=== PATIENT | female | born 1945 | race Caucasian/White ===

== ENCOUNTER 2021-01-21 09:35 | Outpatient (CLI) | payer MEDICARE, SELFPAY ==
--- NOTE | 2021-01-21 09:43 | MM_ITS ---
WS: [id number] BILATERAL SCREENING DIGITAL MAMMOGRAM WITH CAD HISTORY: SCREENING COMPARISON: None available. Bilateral CC and MLO views submitted. Computer aided detection analyzed. Breast composition: There are scattered areas of fibroglandular density. No suspicious masses, microc alcifications or architectural distortion. There are scattered bilateral round punctate calcification s which are benign. There are additional bilateral breast arterial calcifications. MM/[place] [id number] IMPRESSION: BI-RADS: 2-Benign FOLLOW UP: 1 Year Follow-up
== END 2021-01-21 09:36 | disposition home or self-care (01) ==
LOC: RADSHAW 09:42
PROVIDERS: Family Provider Family Medicine; PCP Family Medicine; Visit Provider Family Medicine
DX: Z12.31 Encounter for screening mammogram for malignant neoplasm of breast (principal)
CPT/HCPCS: 77067

== ENCOUNTER → 2021-12-27 07:29 | Outpatient (BNVA) | payer MEDICARE, SELFPAY | PROVIDERS: Family Provider Family Medicine; PCP Family Medicine; Visit Provider Family Medicine | DX: E11.9 Type 2 diabetes mellitus without complications (principal) | CPT/HCPCS: 80053 ==

== ENCOUNTER → 2022-06-30 08:08 | Outpatient (BNVA) | payer MEDICARE, SELFPAY | PROVIDERS: Family Provider Family Medicine; PCP Family Medicine; Visit Provider Family Medicine | DX: E11.9 Type 2 diabetes mellitus without complications (principal); Z00.00 Encounter for general adult medical examination without abnormal findings | CPT/HCPCS: 80053; 80061; 84443 ==

== ENCOUNTER → 2022-07-05 14:36 | Outpatient (BNVA) | payer MEDICARE, SELFPAY | PROVIDERS: Family Provider Family Medicine; PCP Family Medicine; Visit Provider Family Medicine | DX: I10 Essential (primary) hypertension (principal); N39.0 Urinary tract infection, site not specified; R30.0 Dysuria; E78.5 Hyperlipidemia, unspecified; E03.9 Hypothyroidism, unspecified; E11.9 Type 2 diabetes mellitus without complications; N28.9 Disorder of kidney and ureter, unspecified | CPT/HCPCS: 81000; 87077; 87086; 87184 ==

== ENCOUNTER → 2022-09-26 08:01 | Outpatient (BNVA) | payer MEDICARE, SELFPAY | PROVIDERS: Family Provider Family Medicine; PCP Family Medicine; Visit Provider Family Medicine | DX: E11.9 Type 2 diabetes mellitus without complications (principal); I10 Essential (primary) hypertension; E78.5 Hyperlipidemia, unspecified | CPT/HCPCS: 80048; 85025 ==

== ENCOUNTER → 2022-12-28 08:14 | Outpatient (BNVA) | payer MEDICARE, SELFPAY | PROVIDERS: Family Provider Family Medicine; PCP Family Medicine; Visit Provider Family Medicine | DX: E11.9 Type 2 diabetes mellitus without complications (principal); E03.9 Hypothyroidism, unspecified; I10 Essential (primary) hypertension; E78.5 Hyperlipidemia, unspecified | CPT/HCPCS: 80053; 80061; 83036; 84443 ==

== ENCOUNTER → 2023-01-03 09:10 | Outpatient (BNVA) | payer MEDICARE, SELFPAY | PROVIDERS: Family Provider Family Medicine; PCP Family Medicine; Visit Provider Family Medicine | DX: R30.0 Dysuria (principal); R53.1 Weakness; I95.9 Hypotension, unspecified; E11.9 Type 2 diabetes mellitus without complications | CPT/HCPCS: 81000; 85025; 87086 ==

== ENCOUNTER 2023-01-05 12:33 | Inpatient (IN) | payer MEDICARE, SELFPAY ==
[2023-01-05] VITALS (38 sets, daily range): BP systolic 77–116; BP diastolic 46–67; PULSE 72–157; RESP 15–26; TEMP 36.8; O2SAT 70–100; BMI 21.7
--- NOTE | 2023-01-05 12:52 | XR_ITS ---
WS: [id number] Portable AP upright chest, 01/05/2023 Clinical Data: dyspnea/cough Comparison: Portable chest, 02/01/2019 Findings: No nodules, masses or effusions are seen. The heart is normal. The pulmonary vascularity is not increased. No pneumonia or pneumothorax is seen. The aortic arch and descending thoracic aorta s how mild tortuosity. 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 XR/XR chest 1V portable [id number] Impression: Atherosclerosis.
--- NOTE | 2023-01-05 12:59 | W.ED.RECABL ---
HPI - Recheck/Abnormal Lab/Rx General: Chief Complaint: Recheck/Abnormal Lab/Rx Stated Complaint: wbc high sent from dr Time Seen by Provider: 01/05/23 12:49 Source: patient Mode of arrival: ambulatory History of Present Illness: 78-year-old female presents emergency room from her doctor's office. She was seen by Dr. Xiong 2 days ago in the office showed a white count of 48,000 at that time but otherwise generally seemed well other lab work was done and the patient was started on Bactrim due to a urinalysis that showed 3+ blood and 3+ leukocyte esterase. Preliminary culture shows less than 5000 colony-forming units of a mixed aura likely contaminant. She returns today for recheck her white count had improved but her renal function had significantly worsened. She denies any discomfort other than generally not feeling well. Reviewed Dr. Reagan's notes she given essentially the same history to him. She has no known history of any cancers she has no known history of any coronary artery disease. MD complaint: abnormal lab Initial visit (ago): day(s) (2) Review of Systems Const: Denies: fever(s), chills, body aches, change in appetite, fatigue or malaise ENMT: Denies: throat pain, ear or mastoid pain, nasal discharge or nasal congestion Card: Denies: chest pain, edema, dyspnea on exertion or orthopnea Resp: Denies: dyspnea, productive cough or non-productive cough GI: Denies: abdominal pain, nausea, vomiting, hematemesis, coffee ground emesis, diarrhea, constipation, bloating, hematochezia or melena : Denies: flank pain, difficulty voiding, dysuria, urinary frequency or urinary urgency Skin/Breast: Denies: rash or pruritus PFSH ED PFSH: Medical History Diabetes mellitus type 2, controlled Hyperlipidemia Hypertension Hypothyroid Family History (Updated 01/05/23 @ 16:21 by Po Mansfield MD) Other CAD (coronary artery disease) Denies family history of Cancer Social History (Updated 01/05/23 @ 16:22 by Po Mansfield MD) Smoking and tobacco status: former smoker Alcohol intake: never Substance/Drug Use: never Caregiver/support person: Yes Lives independently: Yes Household members: family Housing: House Physical Exam Const: GENERAL APPEARANCE: cooperative and comfortable ORIENTATION/CONSCIOUSNESS: Yes awake, Yes oriented to person, Yes oriented to place and Yes oriented to time HENMT: COMMON NORMALS: normocephalic, atraumatic and hearing grossly normal bilaterally HEAD & SCALP: normocephalic and atraumatic Resp: COMMON NORMALS: normal respiratory effort, No retractions, No use of accessory muscles and clear to auscultation bilaterally AUSCULTATION: clear to auscultation bilaterally Cardio: COMMON NORMALS: regular rate, regular rhythm and No murmurs present (Cardio) RATE: regular rate RHYTHM: regular rhythm GI: COMMON NORMALS: Soft to palpation and No hepatosplenomegaly present AUSCULTATION: Yes normoactive bowel sounds PALPATION: Yes Soft to palpation, No Tenderness to palpation present (GI), No Guarding due to palpation present (GI) and Yes No hepatosplenomegaly present Extremity: COMMON NORMALS: normal to inspection, capillary refill normal, no clubbing, cyanosis or edema, no calf tenderness and no pedal edema Neuro: SENSORIUM/ORIENTATION: Yes oriented to person, Yes oriented to place and Yes oriented to time Skin: COMMON NORMALS: no rashes or lesions noted GENERAL SKIN EXAM: no rashes or lesions noted Course Vital Signs: Vital signs: Vital Signs Temperature 97.9 F 01/06/23 04:00 Pulse Rate 71 01/06/23 04:30 Respiratory Rate 22 H 01/06/23 04:30 Blood Pressure 91/55 01/06/23 04:30 Pulse Oximetry 94 01/06/23 04:30 Oxygen Delivery Me thod Room Air 01/05/23 17:04 MDM - Recheck/Abnormal Lab/Rx Medical Decision Making Acute kidney injury likely secondary to the Bactrim. Additionally patient still has leukocytosis although it is significantly improved cultures done given dose of IV antibiotic. Is not having any chest pain or shortness of breath or productive cough. She given IV fluid bolus which did improve her blood pressure. ABG shows high anion gap metabolic acidosis likely secondary to her acute kidney injury. Serial troponins were negative. UA shows 50-80 white blood cells per high-power field. Lactic acid 1.0. Discussed Dr. Mansfield will admit. Medical Records I reviewed the patient's medical records. Lab Data I reviewed the patient's lab results. 01/05/23 13:20 01/05/23 15:39 Radiology Impressions Chest X-Ray 01/05/23 12:52 Impression: Atherosclerosis. Gallbladder Ultrasound 01/05/23 14:10 IMPRESSION: Normal RIGHT upper quadrant ultrasound. Abdomen/Pelvis CT 01/05/23 16:13 IMPRESSION: 1. No acute findings. 2. Fluid and gaseous distension of the proximal and transverse colon could indicate ileus. No wall thickening to suggest colitis. Laboratory Results WBC 21.1 10^3/uL (4.0-10.0) H 01/05/23 13:20 RBC 2.80 10^6/uL (4.1-5.3) L 01/05/23 13:20 Hgb 8.7 g/dL (11.5-15.3) L 01/05/23 13:20 Hct 28.0 % (37.0-47.0) L 01/05/23 13:20 MCV 100.0 fl (81-99) H 01/05/23 13:20 MCH 31.1 pg (28.0-34.0) 01/05/23 13:20 MCHC 31.1 g/dL (30.0-36.0) 01/05/23 13:20 RDW 13.4 % (12.1-15.1) 01/05/23 13:20 Plt Count 267 10^3/cmm (130-400) 01/05/23 13:20 MPV 9.2 fL (7.4-10.4) 01/05/23 13:20 Neut % (Auto) 86.9 % 01/05/23 13:20 Lymph % (Auto) 6.6 % 01/05/23 13:20 Lyman % (Auto) 5.3 % 01/05/23 13:20 Eos % (Auto) 0.0 % 01/05/23 13:20 Baso % (Auto) 0.2 % 01/05/23 13:20 Neut # (Auto) 18.34 10^3/uL (1.8-7.7) H 01/05/23 13:20 Lymph # (Auto) 1.4 10^3/uL (0.8-4.8) 01/05/23 13:20 Lyman # (Auto) 1.1 10^3/uL (0.2-0.9) H 01/05/23 13:20 Eos # (Auto) 0.0 10^3/uL (0.0-0.8) 01/05/23 13:20 Baso # (Auto) 0.0 10^3/uL (0.0-0.1) 01/05/23 13:20 Nucleated RBC % (auto) 0 % 01/05/23 13:20 Nucleated RBCs # 0.0 /100WBC 01/05/23 13:20 Specimen Type Arterial 01/05/23 14:13 Sample Site Radial, right 01/05/23 14:13 ABG pH 7.26 (7.35-7.45) L 01/05/23 14:13 ABG pCO2 22.6 mmHg (35-45) L 01/05/23 14:13 ABG pO2 87.1 mmHg (80.0-100.0) 01/05/23 14:13 ABG HCO3 10.2 mmol/L (22-26) L 01/05/23 14:13 ABG O2 Saturation 97.1 01/05/23 14:13 ABG Base Excess -15.3 mmol/L (-2.0-2.0) L 01/05/23 14:13 Clifford Test Pos 01/05/23 14:13 A-a O2 Gradient 4.2 mmHg (5-10) L 01/05/23 14:13 Hematocrit 24.5 % (37-47) L 01/05/23 14:13 Hgb O2 Saturation 95.5 % (95-100) 01/05/23 14:13 Carboxyhemoglobin 1.0 %THgb (0.4-20.1) 01/05/23 14:13 Methemoglobin 0.6 % (0.4-1.5) 01/05/23 14:13 Total Hemoglobin 8.0 g/dL (12-16) L 01/05/23 14:13 Sodium 134.0 mmol/L (131-143) 01/05/23 14:13 Potassium 5.4 mmol/L (3.5-5.0) H 01/05/23 14:13 Glucose 102.0 mg/dL (70-115) 01/05/23 14:13 Ionized Calcium 1.2 mmol/L (1.1-1.4) 01/05/23 14:13 O2 Delivery Device Room air 01/05/23 14:13 FiO2 21.0 % 01/05/23 14:13 Dance Coach ID Lilly 01/05/23 14:13 Sodium 140 mmol/L (136-145) 01/05/23 15:39 Potassium 4.4 mmol/L (3.5-5.1) 01/05/23 15:39 Chloride 106 mmol/L (98-107) 01/05/23 15:39 Carbon Dioxide 12 mmol/L (22-29) L 01/05/23 15:39 Anion Gap 26.4 (5-19) H 01/05/23 15:39 BUN 74 mg/dL (8-23) H 01/05/23 15:39 Creatinine 3.7 mg/dL (0.5-0.9) H 01/05/23 15:39 GFR Calculation Not Reportable 01/05/23 15:39 Glucose 126 mg/dL (65-115) H 01/05/23 15:39 Calculated Osmolality 313 mOsm/kg (285-295) H 01/05/23 15:39 Lactic Acid 1.0 mmol/L (0.5-2.2) 01/05/23 13:39 Calcium 9.8 mg/dL (8.5-10.5) 01/05/23 15:39 Iron 16 ug/dL (37-145) L 01/05/23 15:39 TIBC 149 mcg/dl 01/05/23 15:39 % Saturation 10.7 % (20-50) L 01/05/23 15:39 Unsat Iron Binding 133 ug/dL (112-347) 01/05/23 15:39 Total Bilirubin 0.2 mg/dL (0.15-1.2) 01/05/23 13:20 AST 93 U/L (0-32) H 01/05/23 13:20 ALT 44 U/L (0-33) H 01/05/23 13:20 Alkaline Phosphatase 93 U/L (35-105) 01/05/23 13:20 Troponin T Baseline 69 ng/L (0-10) H 01/05/23 13:20 Troponin T 120 Minute 62.66 ng/L (0-10) H 01/05/23 15:39 Delta Troponin T -6.34 ABS# (0-10) L 01/05/23 15:39 Total Protein 7.0 g/dL (6.6-8.7) 01/05/23 13:20 Albumin 3.7 g/dL (3.5-5.2) 01/05/23 13:20 Globulin 3.3 g/dL (1.3-4.6) 01/05/23 13:20 Lipase 36 U/L (13-60) 01/05/23 13:20 Vitamin B12 > 2000 pg/mL (232-1245) H 01/05/23 15:39 Procalcitonin 21.41 ng/mL (0-0.5) H 01/05/23 15:39 Urine Color Light yellow (Yellow) 01/05/23 14:05 Urine Appearance Hazy (CLEAR) A 01/05/23 14:05 Urine pH 5 (5-7) 01/05/23 14:05 Ur Specific [place] 1.010 (1.005-1.030) 01/05/23 14:05 Urine Protein 1+ (Negative) H 01/05/23 14:05 Urine Glucose (UA) Norm (Normal) 01/05/23 14:05 Urine Ketones Negative (Negative) 01/05/23 14:05 Urine Blood 3+ (Negative) H 01/05/23 14:05 Urine Nitrate Positive (Negative) H 01/05/23 14:05 Urine Bilirubin Neg (Negative) 01/05/23 14:05 Urine Urobilinogen Norm mg/dL (Negative) 01/05/23 14:05 Ur Leukocyte Esterase 2+ (Negative) H 01/05/23 14:05 Urine RBC 5-10 /hpf (0-2) H 01/05/23 14:05 Urine WBC 55-80 /hpf (0-5) H 01/05/23 14:05 Ur Squamous Epith Cells 0-4 /hpf (0-5) H 01/05/23 14:05 Amorphous Sediment Not Reportable 01/05/23 14:05 Urine Bacteria 2+ /hpf (NONE) H 01/05/23 14:05 Serum Ketones Negative (Negative) 01/05/23 12:53 Discharge Plan Discharge Patient Disposition: Admitted As Inpatient Admit Provider: Po Mansfield Clinical Impression: Septic shock, KARL (acute kidney injury), UTI (urinary tract infection) Condition: Stable Coding Level of Care Code ED [employer] Checker for Ruben Villela
[2023-01-05] MEDS: sodium chloride 0.9% 1,564.89 ML 1564.89 ML IV (13:19)
[2023-01-05 13:35] LABS: Basophils % 0.2 %; Hemoglobin 8.7 g/dL (11.5-15.3); Lymphocytes # 1.4 10^3/uL (0.8-4.8); Lymphocytes % 6.6 %; Mean Corpuscular HGB Conc 31.1 g/dL (30.0-36.0); Mean Corpuscular Hemoglobin 31.1 pg (28.0-34.0); Mean Platelet Volume 9.2 fL (7.4-10.4); Monocytes # 1.1 10^3/uL (0.2-0.9); Monocytes % 5.3 %; Neutrophils # 18.34 10^3/uL (1.8-7.7); Neutrophils % 86.9 %; Nucleated Red Blood Cells % 0 %; Platelet Count 267 10^3/cmm (130-400); Red Cell Distribution Width 13.4 % (12.1-15.1); White Blood Count 21.1 10^3/uL (4.0-10.0)
[2023-01-05] MEDS: levofloxacin-dextrose 5 % 500 MG/100 ML PREMIX 100 MG IV (13:39)
--- NOTE | 2023-01-05 13:44 | ECG_ITS ---
[facility] Test Date: 2023-01-05 Pat Name: Evita Suarez Department: Room: Gender: Female [employer]: : 1945 Requested By: Sina Hameed Order Number: [id number] Chi MD: Becka Mchugh M.D. Measurements Intervals [place] Rate: 85 P: 73 DC: 172 QRS: 40 QRSD: 77 T: 61 QT: 332 QTc: 395 Interpretive Statements SINUS RHYTHM Compared to ECG 02/01/2019 21:16:06 Sinus tachycardia no longer present ST (T wave) deviation no longer present Electronically Signed On 01-07-2023 6:04:42 CDT by Becka Mchugh M.D. [id number]
[2023-01-05 13:55] LABS: Alanine Aminotransferase 44 U/L (0-33); Albumin Level 3.7 g/dL (3.5-5.2); Alkaline Phosphatase 93 U/L (35-105); Aspartate Amino Transferase 93 U/L (0-32); Calcium 9.3 mg/dL (8.5-10.5); Chloride 101 mmol/L (98-107); Globulin 3.3 g/dL (1.3-4.6); Glucose 86 mg/dL (65-115); Lipase 36 U/L (13-60); Osmolality Calculated 296 mOsm/kg (285-295); Sodium 131 mmol/L (136-145); Total Bilirubin 0.2 mg/dL (0.15-1.2)
[2023-01-05 13:56] LABS: Troponin(5th) Baseline 69 ng/L (0-10)
[2023-01-05 14:08] LABS: Blood Urea Nitrogen 81 mg/dL (8-23); Carbon Dioxide 9 mmol/L (22-29)
--- NOTE | 2023-01-05 14:10 | US_ITS ---
WS: [id number] RIGHT UPPER QUADRANT ULTRASOUND HISTORY: Transaminitis COMPARISON: None available. Liver: 13.9 cm in length. Normal size liver and echogenicity. No bile duct dilatation or mass. Portal Vein: Normal hepatopetal flow with monophasic waveform. Gallbladder: Normally distended gallbladder with no stones or wall thickening. CBD: 0.3 cm Pancreas: Normal size and echogenicity. Right kidney: 9.0 cm in length. Normal size and echogenicity. No hydronephrosis or mass. Aorta and IVC: Unremarkable abdominal aorta and IVC. No ascites. US/US gall bladder [id number] IMPRESSION: Normal RIGHT upper quadrant ultrasound.
[2023-01-05] MEDS: calcium chloride 10% Syr 10 mL 1 GM IVP (14:20)
[2023-01-05] MEDS: sodium polystyrene sulfonate 15 gm/60 mL Btl 30 GM PO (14:20)
[2023-01-05 14:24] LABS: ABG PCO2 22.6 mmHg (35-45); ABG PH Result 7.26 (7.35-7.45); Alveolar-Arterial Oxygen Gradi 4.2 mmHg (5-10); Arterial Blood Gas Hematocrit 24.5 % (37-47); Base Excess ABG -15.3 mmol/L (-2.0-2.0); Blood Gas Allen Test Pos; Blood Gas Operator Identificat WALCI; Blood Gas Sample Site Radial, right; Blood Gas Sample Type Arterial; HCO3 ABG 10.2 mmol/L (22-26); HGB O2 Sat 95.5 % (95-100); Ionized Calcium Level - ABG 1.2 mmol/L (1.1-1.4); Methemoglobin 0.6 % (0.4-1.5); Oxygen Device ROOM AIR; Oxygen Saturation ABG 97.1; PO2 ABG 87.1 mmHg (80.0-100.0); Potassium Level - ABG 5.4 mmol/L (3.5-5.0)
[2023-01-05 14:32] LABS: Ketone (Acetest) Serum Negative (Negative)
[2023-01-05 14:32] LABS: Urine Appearance Hazy (CLEAR); Urine Color Light yellow (Yellow); pH Urine 5 (5-7)
[2023-01-05 14:33] LABS: Add Urine Microscopic? YES; Bilirubin Urine Neg (Negative); Blood Urine 3+ (Negative); Glucose Urine UA Norm (Normal); Ketones Urine Negative (Negative); Leukocyte Esterase Urine 2+ (Negative); Nitrate Urine Positive (Negative); Protein Urine 1+ (Negative); Squamous Epithelial Cell Urine 0-4 /hpf (0-5); Urobilinogen Urine Norm (Negative); WBC Urine 55-80 /hpf (0-5)
[2023-01-05 14:34] LABS: Add Urine Culture? Yes; Bacteria Urine 2+ /hpf
[2023-01-05] MEDS: albuterol 2.5 mg/3 mL Neb 10 MG INHALATION (14:39)
[2023-01-05] MEDS: sodium bicarbonate 1 mEq/mL SDV 50mL 100 MEQ IVP ×2 (14:51→17:10)
--- NOTE | 2023-01-05 14:52 | ECG_ITS ---
[facility] Test Date: 2023-01-05 Pat Name: Evita Suarez Department: Room: Gender: Female Clinical Lab Clerk: : 1945 Requested By: Sina Hameed Order Number: [id number] Chi MD: Becka Mchugh M.D. Measurements Intervals [place] Rate: 112 P: 148 RI: 165 QRS: 63 QRSD: 76 T: 116 QT: 292 QTc: 399 Interpretive Statements ECTOPIC ATRIAL TACHYCARDIA NONSPECIFIC ST & T-WAVE ABNORMALITY ABNORMAL RHYTHM ECG Compared to ECG 01/05/2023 13:44:34 T-wave abnormality now present Sinus rhythm no longer present Electronically Signed On 01-07-2023 6:54:59 CDT by Becka Mchugh M.D. [id number]
--- NOTE | 2023-01-05 16:13 | CTR_ITS ---
PROCEDURE INFORMATION: Exam: CT Abdomen And Pelvis Without Contrast Exam date and time: 01/05/2023 4:33 PM Age: 78 years old Clinical indication: Abdominal pain; Generalized; Additional info: Kidney faliure TECHNIQUE: Imaging protocol: Computed tomography of the abdomen and pelvis without contrast. Radiation optimization: All CT scans at this facility use at least one of these dose optimization techniques: automated exposure control; mA and/or kV adjustment per patient size (includes targeted exams where dose is matched to clinical indication); or iterative reconstruction. REPORTING DATA: Count of CT and Cardiac NM exams in prior 12 months: This patient has received 0 known CTs and 0 known cardiac nuclear medicine studies in the 12 months prior to the current study. COMPARISON: CT abdomen pelvis wo con [id number] 02/03/2019 11:36 AM RADIATION DOSE METRICS: Total DLP (mGy-cm): 358 FINDINGS: Diaphragm: Hiatal hernia. Liver: Normal. No mass. Gallbladder and bile ducts: Normal. No calcified stones. No ductal dilation. Pancreas: Normal. No ductal dilation. Spleen: Normal. No splenomegaly. Adrenal glands: Normal. No mass. Kidneys and ureters: Mild chronic perinephric stranding. The kidneys are otherwise unremarkable. No calculus or hydronephrosis. Stomach and bowel: Scattered air-fluid levels in the transverse and descending colon with no visible wall thickening. The stomach and small bowel are unremarkable. No obstruction. Appendix: The appendix is not visualized. No secondary signs of appendicitis. Intraperitoneal space: Unremarkable. No free air. No significant fluid collection. Vasculature: Unremarkable. No abdominal aortic aneurysm. Lymph nodes: Unremarkable. No enlarged lymph nodes. Urinary bladder: Distended with urine. No wall thickening. Reproductive: Unremarkable as visualized. Bones/joints: Degenerative changes of the lumbar spine. No fracture. Mild leftward lumbar curvature. Soft tissues: Unremarkable. CT/CT abdomen pelvis wo con [id number] IMPRESSION: 1. No acute findings. 2. Fluid and gaseous distension of the proximal and transverse colon could indicate ileus. No wall thickening to suggest colitis.
--- NOTE | 2023-01-05 16:17 | P.HP_ITS ---
Providers/Chief Complaint Admitting Physician: Po Mansfield MD Primary Care Provider: Talib Xiong MD Chief Complaint: wbc high sent from History of Present Illness Evita Suarez is a 78 year old female with past medical history of hypertension not on antihypertensive anymore, hypothyroidism who presents to the ER today from primary care's office because of leukocytosis. As per patient and her son at bedside she was feeling sick, woozy, lethargic few days ago she went to see her primary care's office where she was found to have extreme leukocytosis more than her baseline and was sent home on Bactrim. She has been taking Bactrim since Monday. Today is . Because she continued to feel worse and white count did not improve much she was asked to come to the ER. She herself denies any nausea vomiting, headache. Complains of occasional diarrhea. Complains of feeling cold all the time. Denies any discomfort in passing urine but does complain of occasional dysuria. Blood work done in the ER today shows white count 21,000, hemoglobin of 8.7, s odium of 131, potassium of 6, creatinine of 3.94 BUN of 81 with bicarb of 9, AST/ALT of 93/44, baseline troponin of 69 with UA concerning for UTI. ABG showing metabolic acidosis with pH of 7.26, PCO2 22, PO2 of 87. Patient so far in the ER has received 1.5 L of normal saline and Levaquin. Review of Systems General: Reports: 10 or more systems reviewed and unremarkable except in HPI and below Const: Denies: fever(s), chills, body aches, change in appetite, change in weight, malaise, night sweats, diaphoresis, change in sleep pattern, daytime sleepiness or snoring Eyes: Denies: change in vision, blurry vision, photophobia, eye discomfort or eye discharge ENMT: Denies: throat pain, enlarged tonsils, hoarseness, mouth pain, oral sores, dry mouth, tinnitus, nasal congestion or post nasal drip Card: Denies: chest pain, palpitations, irregular heart rhythm, edema, swelling of feet/ankles, lightheadedness, syncope, pre-syncope, dyspnea on exertion, orthopnea, leg pain with exertion or acrocyanosis Resp: Denies: dyspnea, productive cough, non-productive cough, wheezing, stridor, pain on inspiration, change in phlegm color, hemoptysis or chest congestion GI: Denies: abdominal pain, nausea, vomiting, hematemesis, coffee ground em esis, dysphagia, heartburn, diarrhea, constipation, bloating, GI cramping, change in bowel habits, pain on defecation, hematochezia or melena : Denies: flank pain, dysuria, urinary frequency, urinary urgency, urinary hesitancy, nocturia or hematuria Musc: Denies: neck pain, back pain, extremity pain, joint pain, joint swelling, joint redness, joint stiffness or limited range of motion Neuro: Denies: headache(s), numbness in extremities, weakness in extremities, sensory changes, lack of coordination, difficulty walking, frequent falls, dizziness, vertigo, confusion, Slurred speech present, difficulty communicating thoughts or seizure-like activity Psych: Denies: anxiety, depression, mood swings, panic attacks, hopelessness or irritability Endo: Denies: polyuria, polydipsia, tired all the time, cold intolerance, excessive sweating, flushing or heat intolerance Sharan/Lymph: Denies: easy bruising or easy bleeding All/Imm: Denies: tongue swelling, facial swelling or acute wheezing Medications/Allergies Home Medications Medication Instructions Recorded Confirmed Last Taken Type atorvastatin 10 mg tablet 10 mg PO DAILY 07/05/22 01/05/23 01/05/23 History montelukast 10 mg tablet 10 mg PO DAILY 07/05/22 01/05/23 01/05/23 History (Singulair) levothyroxine 50 mcg tablet 50 mcg PO DAILY #30 tabs 11/15/22 01/05/23 01/05/23 Rx sulfamethoxazole 800 1 tab PO BID #14 tabs 01/03/23 01/05/23 01/05/23 Rx mg-trimethoprim 160 mg tablet (Bactrim DS) acetaminophen 325 mg tablet 650 mg PO QID PRN Pain 01/05/23 01/05/23 Unknown History ascorbic acid (vitamin C) 100 mg 100 mg PO DAILY 01/05/23 01/05/23 Unknown History tablet (Vitamin C) calcium carbonate 500 mg calcium 500 mg PO BID 01/05/23 01/05/23 Unknown History (1,250 mg) tablet cholecalciferol (vitamin D3) 25 25 mcg PO DAILY 01/05/23 01/05/23 Unknown History mcg (1,000 unit) tablet (Vitamin D3) chromium aa [id number]-ivuaaxdup-rjvc 1 tab PO DAILY 01/05/23 01/05/23 Unknown History 200 mcg-5 mg-25 mg tablet coenzyme Q10 30 mg capsule 30 mg PO DAILY 01/05/23 01/05/23 Unknown History garlic 100 mg tablet 100 mg PO DAILY 01/05/23 01/05/23 Unknown History yvtjujsz-vvu-hwjoa ac 400 1 tab PO DAILY 01/05/23 01/05/23 Unknown History mcg-calcium carb 500 mg-vit K1 20 mcg tablet (Women's 50 Plus Multivitamin) vitamin A 2,400 mcg capsule 2,400 mcg PO DAILY 01/05/23 01/05/23 Unknown History vitamin B complex 1 cap PO DAILY 01/05/23 01/05/23 Unknown History vitamin B12 0.5 mg-folic acid 1 mg 1 tab PO DAILY 01/05/23 01/05/23 Unknown History tablet Allergies Allergy/AdvReac Type Severity Reaction Status Date / Time No Known Allergies Allergy Verified 01/05/23 12:47 PFSH Acute PFSH: Medical History Diabetes mellitus type 2, controlled Hyperlipidemia Hypertension Hypothyroid Family History (Updated 01/05/23 @ 16:21 by Po Mansfield MD) Other CAD (coronary artery disease) Denies family history of Cancer Social History (Updated 01/05/23 @ 16:22 by Po Mansfield MD) Smoking and tobacco status: former smoker Alcohol intake: never Substance/Drug Use: never Caregiver/support person: Yes Lives independently: Yes Household members: family Housing: House Vitals/I&O/Wt Last Vital Signs Temp 98.2 F 01/05/23 12:45 Pulse 117 H 01/05/23 15:00 Resp 17 01/05/23 15:00 BP 116/52 01/05/23 15:00 Pulse Ox 99 01/05/23 15:00 O2 Del Method Room Air 01/05/23 14:37 01/05/23 01/05/23 01/05/23 06:59 14:59 22:59 Intake Total 1664.89 / 1664.89 Balance 1664.89 / 1664.89 Weight last 48 hrs Weight 52.163 kg Physical Exam Narrative: General: No acute distress, AO x3, cachectic, chronically sick appearing, pallor present HEENT: PERRLA, pupils bilaterally equal and reactive Chest: Bilateral bronchial breath sounds all over lung rodriguez with occasional rhonchi all over lung rodriguez. CVS: S1-S2 regular, no murmurs, no tachycardia, no gallops, no rubs Abdomen: Soft, nontender, no organomegaly, bowel sounds present, morbidly obese Neuro: No focal deficits, no facial deformity, AO x3, power 5/5 in all limbs Data 01/05/23 13:20 01/05/23 13:20 Micro: Microbiology 01/05/23 13:39 Blood Culture - Preliminary Blood SPECIMEN COLLECTED 01/05/23 13:20 Blood Culture - Preliminary Blood SPECIMEN COLLECTED A&P Assessment and plan (1) Septic shock: Ruled out on admission in setting of leukocytosis, tachycardia, low blood pressures with endorgan damage of acute kidney injury and hyperkalemia Keep neuro pressure 65. If needed start on Levophed. Start on D5 NS at 75 cc/h. Follow-up blood culture, urine culture. For now start patient on Zosyn. Check MRSA swab. If positive start on vancomycin. Check procalcitonin, urine Legionella, bacterial antigen, tick panel. (2) Leukocytosis: Baseline white count seems to be running around 18,000. Cannot rule out baseline lymphoma or leukemia. We will check lymphoma panel. Complains of occasional diarrhea. Check stool studies. (3) Anemia: Hemoglobin at baseline. Around 8.7. Check iron panel. If needed start on IV iron supplementation. Keep hemoglobin over 7. Will transfuse accordingly. IV Protonix 40 mg daily. (4) KARL (acute kidney injury): Baseline CKD. Baseline creatinine 1.6. Worsening in setting of dehydration, shock along with use of Bactrim at home. Associated with metabolic acidosis and hyperkalemia. Check urine lites, urine creatinine, urine eosinophils. CT abdomen pelvis to rule out obstructive nephropathy. Medical reconciliation done for nephrotoxic drugs. Suarez catheter for strict input output charting. Monitor BMP every 12 hours for now. Sodium bicarb 100 mg one-time. If continues to remain low will add sodium bicarb to fluids. D50/10 units insulin and 1 g of IV calcium for hyperkalemia. Repeat BMP in evening. (5) Metabolic acidosis: (6) Hyperkalemia: (7) UTI (urinary tract infection): Plan Analgesia: Tylenol as needed Glycemic control: Not needed. Currently hypoglycemia. Hypoglycemia protocol. D5 as above. Nutrition: Renal nondialysis diet. CODE STATUS: Full code. Resuscitation Giurgius son and patient. Son will be the DPOA. Would not want to remain on life support for long. PUD prophylaxis: Protonix DVT prophylaxis: Heparin 5000 every 12 hourly. Discharge planning: Back home with caregiver once stable. Admit to ICU. This documentation was created by [employer] vessel scrapper software. Every effort was made to ensure accuracy of vessel scrapper. Any obvious errors or omissions should be clarified with the author of the document. Attestations Medical Necessity Statement*: Admission for more than 2 midnights for management of septic shock, acute kidney injury with hyperkalemia metabolic acidosis in setting of UTI Coding Level of Care Code Critical Care >/= 30 minutes Critical care time (in minutes): 70 The high probability of a clinically significant, sudden or life threatening deterioration, as referenced in this documentation, required my full and direct attention, intervention and personal management. The critical care time shown is in addition to time spent performing any reported separately billable procedures and includes the following: [x] Data and vital sign review and interpretation [x ] Patient assessment, examination and intervention [x] Medication orders and management [x] Patient/Family updates as able [x] Care Coordination and Documentation. Diagnoses Septic shock A41.9; R65.21 Leukocytosis D72.829 Anemia D64.9 KARL (acute kidney injury) N17.9 Metabolic acidosis E87.20 Hyperkalemia E87.5 UTI (urinary tract infection) N39.0
[2023-01-05 16:22] LABS: Troponin 5 2HR 62.66 ng/L (0-10)
[2023-01-05 16:24] LABS: Troponin 5 2HR Delta -6.34 ABS# (0-10)
--- NOTE | 2023-01-05 16:45 | PC.PHAR ---
PHARMACY TO DOSE - ZOSYN With the patient's current CrCl <20 @ 9.15, the patient is indicated for 3.375gm every 12 hours with the extended-infusion therapy. Pharmacy will continue to monitor the patient's renal function and make adjustments as needed. Please let us know if there is anything else that we can do for you. Thanks, Lester Townsend, Pharm.D
[2023-01-05 16:54] LABS: Anion Gap 26.4 (5-19); Blood Urea Nitrogen 74 mg/dL (8-23); Calcium 9.8 mg/dL (8.5-10.5); Carbon Dioxide 12 mmol/L (22-29); Chloride 106 mmol/L (98-107); Glucose 126 mg/dL (65-115); Iron 16 ug/dL (37-145); Osmolality Calculated 313 mOsm/kg (285-295); Percent Saturation 10.7 % (20-50); Potassium 4.4 mmol/L (3.5-5.1); Sodium 140 mmol/L (136-145); Total Iron Binding Capacity 149 mcg/dl; Unsaturated Iron Binding 133 ug/dL (112-347)
[2023-01-05 17:08] LABS: Procalcitonin 21.41 ng/mL (0-0.5)
[2023-01-05] MEDS: heparin 5,000 unit/mL INJ 1 mL 5000 UNIT SUBCUT (17:09)
[2023-01-05] MEDS: pantoprazole 40 mg SDV IVP (17:10)
[2023-01-05] MEDS: piperacillin-tazobactam 3.375 GM in sodium chloride 0.9% (plus) 50 ML IV (17:10)
[2023-01-05] MEDS: insulin regular-human 10 UNIT in SYRINGE 1 EACH IVP (17:10)
[2023-01-05] MEDS: calcium gluconate 0.1 gm/mL 10% SDV 10mL 1 GM IVP (17:11)
[2023-01-05] MEDS: dextrose 5%-sod chloride 0.9% 1,000 ML 75 ML IV (17:12)
[2023-01-05 17:37] LABS: Vitamin B12 > 2000 pg/mL (232-1245)
[2023-01-05 18:01] LABS: D Dimer 3.97 ug/mIFEU (0-0.59)
[2023-01-05 18:18] LABS: Potassium, Radom Urine 13 mmol/L; Urine Creatinine 46 mg/dL (28-217); Urine Random Chloride 60 mmol/L; Urine Random Sodium 81 mmol/L
--- NOTE | 2023-01-05 18:52 | ECG_ITS ---
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 Measurements Intervals [place] Rate: 99 P: 75 MS: 166 QRS: 32 QRSD: 88 T: 65 QT: 306 QTc: 393 Interpretive Statements SINUS RHYTHM LOW QRS VOLTAGE IN EXTREMITY LEADS [QRS DEFLECTION < 0.5 mV IN LIMB LEADS] Compared to ECG 01/05/2023 15:02:25 Low QRS voltage now present T-wave abnormality no longer present Electronically Signed On 01-07-2023 6:51:38 CDT by Becka Mchugh M.D. [id number]
--- NOTE | 2023-01-05 18:53 | PC.NURSE ---
Pt was admitted to ICU on room air via bed. All vitals WNL. Tolerated well.
[2023-01-05 19:38] LABS: Troponin 5 6HR 60.52 ng/L (0-10)
[2023-01-05 19:39] LABS: Troponin 5 6HR Delta -8.48 ng/L (0-12)
[2023-01-05 19:48] LABS: Eosinophil Urine No Eosinophils Seen; Urine Eosinophil Count 0 (0-0)
[2023-01-05 19:52] LABS: Cortisol Random 29.92 ug/dL (2.47-19.5)
[2023-01-06] VITALS (102 sets, daily range): BP systolic 83–133; BP diastolic 48–86; PULSE 58–129; RESP 15–30; TEMP 36.4–38.5; O2SAT 83–97; BMI 21.3
[2023-01-06] MEDS: piperacillin-tazobactam 3.375 GM in sodium chloride 0.9% (plus) 50 ML IV ×2 (04:44→16:37)
[2023-01-06] MEDS: heparin 5,000 unit/mL INJ 1 mL 5000 UNIT SUBCUT ×2 (04:45→16:36)
[2023-01-06 06:21] LABS: Alanine Aminotransferase 35 U/L (0-33); Albumin Level 2.7 g/dL (3.5-5.2); Alkaline Phosphatase 74 U/L (35-105); Anion Gap 18.7 (5-19); Aspartate Amino Transferase 58 U/L (0-32); Blood Urea Nitrogen 55 mg/dL (8-23); Calcium 8.7 mg/dL (8.5-10.5); Carbon Dioxide 19 mmol/L (22-29); Chloride 108 mmol/L (98-107); Glucose 146 mg/dL (65-115); Osmolality Calculated 312 mOsm/kg (285-295); Phosphorus 3.5 mg/dL (2.5-4.5); Potassium 3.7 mmol/L (3.5-5.1); Sodium 142 mmol/L (136-145); Total Bilirubin 0.2 mg/dL (0.15-1.2); Total Protein 5.7 g/dL (6.6-8.7)
[2023-01-06 06:28] LABS: Procalcitonin 11.03 ng/mL (0-0.5)
[2023-01-06] MEDS: dextrose 5%-sod chloride 0.9% 1,000 ML 75 ML IV ×2 (06:37→18:12)
[2023-01-06 06:54] LABS: Folate Level > 20.0 ng/mL (4.8-37.3)
[2023-01-06] MEDS: acetaminophen 325 mg Tablet 650 MG PO ×3 (08:08→20:36)
[2023-01-06] MEDS: levothyroxine 50 mcg Tablet PO (08:08)
[2023-01-06 08:32] LABS: Basophils % 0.1 %; Hematocrit 21.8 % (37.0-47.0); Lymphocytes # 1.1 10^3/uL (0.8-4.8); Lymphocytes % 11.9 %; Mean Corpuscular HGB Conc 32.1 g/dL (30.0-36.0); Mean Corpuscular Volume 96.5 fl (81-99); Mean Platelet Volume 9.4 fL (7.4-10.4); Monocytes % 10.5 %; Neutrophils # 7.14 10^3/uL (1.8-7.7); Neutrophils % 76.7 %; Nucleated Red Blood Cells % 0 %; Platelet Count 206 10^3/cmm (130-400); Red Blood Count 2.26 10^6/uL (4.1-5.3); Red Cell Distribution Width 13.4 % (12.1-15.1); White Blood Count 9.3 10^3/uL (4.0-10.0)
[2023-01-06 10:18] LABS: Reticulocyte % 1.3 % (0.5-2.0)
--- NOTE | 2023-01-06 12:53 | XR_ITS ---
WS: [id number] Portable AP upright chest, 01/06/2023 Clinical Data: Post PICC placement Comparison: Portable chest, 01/05/2023 Findings: The right PICC line ends in the superior vena cava. No pneumothorax is seen. XR/XR chest 1V portable [id number] Impression: Satisfactory placement of right PICC line.
--- NOTE | 2023-01-06 13:00 | PC.NURSE ---
Triple lumen PICC placed to right basilic vein without difficulty. Mid-arm circumference measured 10 cm from right AC 24 cm. Trimmed cath length 35 cm with 0 cm external length noted. CXR shows cath tip in SVC, in good position for use per radiologist. EBL < 5 mL. Dressing due to be changed 01/07/23. Report given to bedside nurse, November.
[2023-01-06] MEDS: sodium chloride 0.9% 100 mL Bag 50 ML IV (14:01)
--- NOTE | 2023-01-06 14:45 | ECG_ITS ---
[facility] Test Date: 2023-01-06 Pat Name: Evita Suarez Department: Room: 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 Measurements Intervals [place] Rate: 84 P: 82 UT: 207 QRS: 8 QRSD: 82 T: 38 QT: 334 QTc: 397 Interpretive Statements SINUS RHYTHM Compared to ECG 01/05/2023 18:40:35 No significant changes Electronically Signed On 01-07-2023 6:20:41 CDT by Becka Mchugh M.D. [id number]
[2023-01-06] MEDS: acetaminophen 1,000 MG/100 ML PIGGYBACK 400 MG IV (16:25)
--- NOTE | 2023-01-06 16:30 | USCV_ITS ---
Evita Suarez Age: 78 Gender: F : 1945 Exam Date: 01/06/2023 01:10 Ordering Phys: Po Mansfield MD Technologist: NICHOLE Exam Location: [facility] Indication: septic shock. No history of cardiac intervention per patient. BP: 102 / 66 HR: 85 Rhythm: Sinus Technical Quality: Adequate MEASUREMENTS (Male / Female) Normal Values 2D ECHO LV Diastolic Diameter PLAX 3.8 cm 4.2 - 5.9 / 3.9 - 5.3 cm LV Systolic Diameter PLAX 2.7 cm IVS Diastolic Thickness 1.3 cm 0.6 - 1.0 / 0.6 - 0.9 cm IVS Systolic Thickness 1.7 cm LVPW Diastolic Thickness 1.2 cm 0.6 - 1.0 / 0.6 - 0.9 cm LVPW Systolic Thickness 1.9 cm LVOT Diameter 1.9 cm LV Ejection Fraction 2D Teich 57.0 % LV Ejection Fraction MOD 2C 73.2 % LV Ejection Fraction 2C AL 73.9 % LA Diameter 4.1 cm LA Width 3.5 cm LA Height 4.9 cm RA Width 3.3 cm RA Height 4.9 cm Aorta at Sinotubular Diameter 2.9 cm IVC Diameter 1.9 cm M-MODE Aortic Annulus Diameter 3.1 cm LA Ao Ratio MM 1.3 MV E Point Septal Separation 0.4 cm DOPPLER AV Peak Velocity 150.0 cm/s LVOT Peak Velocity 97.0 cm/s AV Area Cont Eq vti 2.0 cm squared AV Area Cont Eq pk 1.8 cm squared MV Peak Velocity 98.0 cm/s MV Area PHT 3.2 cm squared Mitral E to A Ratio 0.9 MV E' Velocity 48.0 cm/s Mitral E to MV E' Ratio 6.3 Mitral E to LV E' Lateral Ratio 6.2 Mitral E to LV E' Septal Ratio 6.4 TR Peak Velocity 251.0 cm/s TR Peak Gradient 25.2 mmHg TV Peak E Velocity 54.0 cm/s Right Atrial Pressure 5.0 mmHg Pulmonary Artery Systolic Pressu 30.2 mmHg PV Peak Velocity 94.0 cm/s RV Acceleration Time 0.1 s RV Ejection Time 0.3 s RV AcT/ET 0.4 FINDINGS Left Ventricle Normal left ventricular size, systolic function and wall thickness, with no regional wall motion abnormalities. Left ventricular ejection fraction is estimated at 70 %. Normal diastolic function. Right Ventricle Normal right ventricular size and systolic function. Right ventricular systolic pressure 29 mmHg. Right Atrium Normal right atrial size. Left Atrium Mildly increased left atrial size. Mitral Valve Structurally normal mitral valve. No mitral valve stenosis. Trace mitral valve regurgitation. Aortic Valve Structurally normal trileaflet aortic valve. No aortic valve stenosis. No aortic valve regurgitation. Tricuspid Valve Structurally normal tricuspid valve. No tricuspid valve stenosis. Mild tricuspid valve regurgitation. Pulmonic Valve Structurally normal pulmonic valve. No pulmonary valve stenosis. Trace pulmonary valve regurgitation. Pericardium No pericardial effusion. Aorta Normal size aortic root and proximal ascending aorta. IVC Normal IVC dimension with >50% respiratory change of the inferior vena cava. CONCLUSIONS 1. Normal left ventricular size, systolic function and wall thickness, with no regional wall motion abnormalities. Left ventricular ejection fraction is estimated at 70 %. Normal diastolic function. 2. No prior similar studies to compare. Becka Mchugh MD (Electronically Signed) Final Date: 06 Jan 2023 14:00 S
[2023-01-06] MEDS: pantoprazole 40 mg SDV IVP (16:51)
--- NOTE | 2023-01-06 17:10 | P.PN_ITS ---
Subjective Subjective: Seen multiple times during the day. Today morning examination patient lying comfortably in bed. States she is feeling fine. Tmax since admission 101.3 Fahrenheit. On examination today had been blood pressure running in around 60s. She was started on Levophed which was initially started at 8 but later being down and maintained at around 2 to mid maintain mean over pressure over 65-70. She did have tachycardia when she was on high Levophed but better since weaning off Levophed. Urine output has been appropriate. Patient denies any nausea, vomiting, headache. Urine output in last 24 hours since admission around 1200 cc. Vitals/I&O/Wt Last Vital Signs Temp 100 F H 01/06/23 16:52 Pulse 64 01/06/23 16:52 Resp 20 H 01/06/23 16:52 BP 124/62 01/06/23 16:52 Pulse Ox 94 01/06/23 16:52 O2 Del Method Room Air 01/06/23 12:30 01/06/23 01/06/23 01/06/23 06:59 14:59 22:59 Intake Total 1240 / 3194.89 642.141 / 642.141 500 / 1142.141 Output Total 400 / 1200 800 / 800 Balance 840 / 1994.89 642.141 / 642.141 -300 / 342.141 Weight last 48 hrs Weight 51.256 kg Weight 52.163 kg Physical Exam Narrative: General: No acute distress, AO x3, cachectic, chronically sick appearing, pallor present HEENT: PERRLA, pupils bilaterally equal and reactive Chest: Bilateral bronchial breath sounds all over lung rodriguez with occasional rhonchi all over lung rodriguez. CVS: S1-S2 regular, no murmurs, no tachycardia, no gallops, no rubs Abdomen: Soft, nontender, no organomegaly, bowel sounds present, morbidly obese Neuro: No focal deficits, no facial deformity, AO x3, power 5/5 in all limbs Urinary Catheter Management: Suarez: Cath Placed During This Visit: yes Reason for Continuing Indwelling Catheter: Accurate Measurement of Urinary Output in Critically Ill Patients Urinary Catheter Date of Insertion: 01/05/23 Urinary Catheter Time of Insertion: 17:02 Data 01/06/23 07:40 01/06/23 05:29 Micro: Microbiology 01/05/23 17:00 MRSA Culture - Final Nose 01/05/23 13:39 Blood Culture - Preliminary Blood NEGATIVE TO DATE 01/05/23 13:20 Blood Culture - Preliminary Blood NEGATIVE TO DATE 01/05/23 14:05 Urine Culture - Preliminary Urine,Clean Catch Gram Negative Rods 01/05/23 17:00 Bacterial Antigens - Final Urine Kidney 01/05/23 17:00 Legionella Urinary Antigen - Final Unknown Source A&P Assessment and plan (1) Septic shock: Ruled in on admission in setting of leukocytosis, tachycardia, low blood pressures with endorgan damage of acute kidney injury and hyperkalemia Keep mean arterial pressure 65-70. Continue with Levophed. Maintain Levophed for today. Do not wean. Check Cheetah exam. Fluid bolus according to the results. Continue with D5 NS at 75 cc/h. Follow-up blood culture. Urine cultures so far growing gram-negative rods. Continue with Zosyn. MRSA swab negative. Urine Legionella, bacterial antigen negative. Appreciate procalcitonin. Pro-tick panel pending. (2) Leukocytosis: Leukocytosis has resolved today. Continue to monitor. Lymphoma panel was sent in yesterday. (3) Anemia: Hemoglobin down to 7 today. Severe iron deficiency anemia. Transfuse 1 unit of PRBC to maintain hemoglobin around 8. Start on IV iron supplementation. Appreciate folate and vitamin B12 levels. IV Protonix 40 mg daily. (4) KARL (acute kidney injury): Baseline CKD. Baseline creatinine 1.6. Worsening in setting of dehydration, shock along with use of Bactrim at home. Associated with metabolic acidosis and hyperkalemia. Appreciate urine lites. CT abdomen pelvis ruled out obstructive nephropathy. Medical reconciliation done for nephrotoxic drugs. And her metabolic acidosis has resolved. No other electrolyte abnormalities. Repeat BMP in evening. (5) Metabolic acidosis: (6) Hyperkalemia: (7) UTI (urinary tract infection): Plan Analgesia: Tylenol as needed Glycemic control: A1c 5.4. Not needed. Currently hypoglycemia. Hypoglycemia protocol. D5 as above. Nutrition: Renal nondialysis diet. CODE STATUS: Full code. Discussed in detail at bedside with son and patient. Son will be the DPOA. Would not want to remain on life support for long. PUD prophylaxis: Protonix DVT prophylaxis: Heparin 5000 every 12 hourly. Discharge planning: Back home with caregiver once stable. Continue with ICU care. This documentation was created by [employer] stave block splitter software. Every effort was made to ensure accuracy of stave block splitter. Any obvious errors or omissions should be clarified with the author of the document. Attestations Medical Necessity Statement*: Requires further hospitalization for management of septic shock in setting of UTI, acute kidney injury, anemia requiring blood transfusion Coding Level of Care Code Critical Care >/= 30 minutes Critical care time (in minutes): 70 The high probability of a clinically significant, sudden or life threatening deterioration, as referenced in this documentation, required my full and direct attention, intervention and personal management. The critical care time shown is in addition to time spent performing any reported separately billable procedures and includes the following: [x] Data and vital sign review and interpretation [x ] Patient assessment, examination and intervention [x] Medication orders and management [x] Patient/Family updates as able [x] Care Coordination and Documentation. Diagnoses Septic shock A41.9; R65.21 Leukocytosis D72.829 Anemia D64.9 KARL (acute kidney injury) N17.9 Metabolic acidosis E87.20 Hyperkalemia E87.5 UTI (urinary tract infection) N39.0
[2023-01-06 19:26] LABS: Basophils % 0.2 %; Eosinophils % 0.2 %; Hematocrit 25.5 % (37.0-47.0); Hemoglobin 8.4 g/dL (11.5-15.3); Lymphocytes # 1.3 10^3/uL (0.8-4.8); Lymphocytes % 12.5 %; Mean Corpuscular HGB Conc 32.9 g/dL (30.0-36.0); Mean Corpuscular Hemoglobin 32.1 pg (28.0-34.0); Mean Corpuscular Volume 97.3 fl (81-99); Monocytes # 0.9 10^3/uL (0.2-0.9); Monocytes % 8.7 %; Neutrophils # 8.27 10^3/uL (1.8-7.7); Neutrophils % 77.3 %; Nucleated Red Blood Cells % 0 %; Platelet Count 199 10^3/cmm (130-400); Red Blood Count 2.62 10^6/uL (4.1-5.3); Red Cell Distribution Width 14.7 % (12.1-15.1); White Blood Count 10.7 10^3/uL (4.0-10.0)
[2023-01-06 19:39] LABS: Alanine Aminotransferase 36 U/L (0-33); Albumin Level 2.5 g/dL (3.5-5.2); Alkaline Phosphatase 67 U/L (35-105); Aspartate Amino Transferase 48 U/L (0-32); Blood Urea Nitrogen 40 mg/dL (8-23); Calcium 7.3 mg/dL (8.5-10.5); Carbon Dioxide 17 mmol/L (22-29); Chloride 106 mmol/L (98-107); Globulin 2.7 g/dL (1.3-4.6); Glucose 286 mg/dL (65-115); Osmolality Calculated 302 mOsm/kg (285-295); Sodium 136 mmol/L (136-145); Total Bilirubin 0.2 mg/dL (0.15-1.2); Total Protein 5.2 g/dL (6.6-8.7)
[2023-01-07] VITALS (92 sets, daily range): BP systolic 85–136; BP diastolic 42–81; PULSE 62–117; RESP 16–32; TEMP 36.9–38.4; O2SAT 90–100; BMI 21.3
[2023-01-07] MEDS: acetaminophen 325 mg Tablet 650 MG PO ×3 (02:36→14:53)
[2023-01-07 03:53] LABS: Basophils % 0.2 %; Eosinophils # 0.1 10^3/uL (0.0-0.8); Eosinophils % 0.7 %; Hematocrit 25.4 % (37.0-47.0); Hemoglobin 8.1 g/dL (11.5-15.3); Lymphocytes % 9.3 %; Mean Corpuscular HGB Conc 31.9 g/dL (30.0-36.0); Mean Corpuscular Hemoglobin 30.5 pg (28.0-34.0); Mean Corpuscular Volume 95.5 fl (81-99); Mean Platelet Volume 9.1 fL (7.4-10.4); Monocytes # 0.9 10^3/uL (0.2-0.9); Monocytes % 8.2 %; Neutrophils # 8.52 10^3/uL (1.8-7.7); Neutrophils % 80.5 %; Nucleated Red Blood Cells % 0 %; Platelet Count 208 10^3/cmm (130-400); Red Blood Count 2.66 10^6/uL (4.1-5.3); Red Cell Distribution Width 15.2 % (12.1-15.1); White Blood Count 10.6 10^3/uL (4.0-10.0)
[2023-01-07 04:14] LABS: Alanine Aminotransferase 35 U/L (0-33); Albumin Level 2.3 g/dL (3.5-5.2); Alkaline Phosphatase 73 U/L (35-105); Aspartate Amino Transferase 48 U/L (0-32); Blood Urea Nitrogen 36 mg/dL (8-23); Calcium 7.8 mg/dL (8.5-10.5); Carbon Dioxide 16 mmol/L (22-29); Chloride 107 mmol/L (98-107); Globulin 3.1 g/dL (1.3-4.6); Glucose 142 mg/dL (65-115); Osmolality Calculated 291 mOsm/kg (285-295); Sodium 135 mmol/L (136-145); Total Bilirubin 0.2 mg/dL (0.15-1.2); Total Protein 5.4 g/dL (6.6-8.7)
[2023-01-07] MEDS: piperacillin-tazobactam 3.375 GM in sodium chloride 0.9% (plus) 50 ML IV (05:11)
[2023-01-07] MEDS: heparin 5,000 unit/mL INJ 1 mL 5000 UNIT SUBCUT ×2 (05:11→16:22)
[2023-01-07] MEDS: dextrose 5%-sod chloride 0.9% 1,000 ML 75 ML IV ×2 (07:53→18:05)
[2023-01-07] MEDS: levothyroxine 50 mcg Tablet PO (08:39)
[2023-01-07] MEDS: sodium chloride 0.9% 500 ML IV (10:35)
[2023-01-07] MEDS: cefTRIAXone 1,000 MG in sodium chloride 0.9% (plus) 50 ML 100 MG IV (11:43)
[2023-01-07] MEDS: pantoprazole 40 mg SDV IVP (16:22)
--- NOTE | 2023-01-07 16:53 | P.PN_ITS ---
Subjective Subjective: No acute events overnight. Patient has remained hemodynamically stable and afebrile. Levophed was turned off. Mean artery pressure overnight has maintained over 65. Today morning on sitting up in chair patient did have drop in blood pressure and became slightly dizzy for which she she was restarted on Levophed for a short while and received a fluid bolus after which her blood pressures again improved. Levophed is turned off. Tmax last 24 hours 100.3 Fahrenheit. Document urine output of around 1900 cc last 24 hours. Continues to remain on room air, comfortable laying in bed. Vitals/I&O/Wt Last Vital Signs Temp 99.9 F H 01/07/23 15:45 Pulse 64 01/07/23 16:00 Resp 25 H 01/07/23 16:00 BP 114/67 01/07/23 16:00 Pulse Ox 97 01/07/23 16:00 O2 Del Method Room Air 01/07/23 15:45 01/07/23 01/07/23 01/07/23 06:59 14:59 22:59 Intake Total 328.011 / 3278.902 2043.429 / 2043.429 Output Total 400 / 1900 800 / 800 Balance -71.989 / 5563.940 6285.429 / 2043.429 -800 / 1243.429 Weight last 48 hrs Weight 51.256 kg Weight 51.256 kg Physical Exam Narrative: General: No acute distress, AO x3, cachectic, chronically sick appearing, pallor present HEENT: PERRLA, pupils bilaterally equal and reactive Chest: Bilateral bronchial breath sounds all over lung rodriguez with occasional rhonchi all over lung rodriguez. CVS: S1-S2 regular, no murmurs, no tachycardia, no gallops, no rubs Abdomen: Soft, nontender, no organomegaly, bowel sounds present, morbidly obese Neuro: No focal deficits, no facial deformity, AO x3, power 5/5 in all limbs Urinary Catheter Management: Suarez: Cath Placed During This Visit: yes Reason for Continuing Indwelling Catheter: Accurate Measurement of Urinary Output in Critically Ill Patients Urinary Catheter Date of Insertion: 01/05/23 Urinary Catheter Time of Insertion: 17:02 Data 01/07/23 03:21 01/07/23 03:21 Micro: Microbiology 01/06/23 12:22 Gram Stain - Final Sputum - Expectorated Sputum 01/05/23 14:05 Urine Culture - Final Urine,Clean Catch Escherichia coli 01/05/23 17:00 MRSA Culture - Final Nose 01/05/23 13:39 Blood Culture - Preliminary Blood NEGATIVE TO DATE 01/05/23 13:20 Blood Culture - Preliminary Blood NEGATIVE TO DATE A&P Assessment and plan (1) Septic shock: Ruled in on admission in setting of leukocytosis, tachycardia, low blood pressures with endorgan damage of acute kidney injury and hyperkalemia Keep mean arterial pressure 65-70. Levophed weaned off. Continue with D5 NS at 100 cc/h. Check orthostatics every 6 hourly. Blood cultures so far negative. Urine culture growing E. coli. Sensitivities appreciated. Switch from Zosyn to IV ceftriaxone. Tick panel pending. LAURA Suarez. (2) Anemia: Post 1 unit of PRBC transfusion. Hemoglobin appropriately up to 8.1. Start on IV iron supplementation. Appreciate folate and vitamin B12 levels. IV Protonix 40 mg daily. (3) KARL (acute kidney injury): Baseline CKD. Baseline creatinine 1.6. Worsening in setting of dehydration, shock along with use of Bactrim at home. Associated with metabolic acidosis and hyperkalemia. Creatinine trending down. Down to 1.9 today. Strict input output charting. Continue with IV fluids as above. CT abdomen pelvis ruled out obstructive nephropathy. Medical reconciliation done for nephrotoxic drugs. Continue to monitor BMP daily. (4) Metabolic acidosis: (5) Hyperkalemia: (6) UTI (urinary tract infection): (7) Leukocytosis: Leukocytosis has resolved today. Continue to monitor. Lymphoma panel was sent in yesterday. Plan Analgesia: Tylenol as needed Glycemic control: A1c 5.4. Not needed. Currently hypoglycemia. Hypoglycemia protocol. D5 as above. Nutrition: Renal nondialysis diet. CODE STATUS: Full code. Discussed in detail at bedside with son and patient. Son will be the DPOA. Would not want to remain on life support for long. PUD prophylaxis: Protonix DVT prophylaxis: Heparin 5000 every 12 hourly. Discharge planning: Back home with caregiver once stable. Continue with ICU care. This documentation was created by [employer] personal banking representative software. Every effort was made to ensure accuracy of personal banking representative. Any obvious errors or omissions should be clarified with the author of the document. Attestations Medical Necessity Statement*: Requires further hospitalization for management of septic shock in setting of E. coli UTI, anemia requiring blood transfusion, acute kidney injury secondary to dehydration Coding Level of Care Code Critical Care >/= 30 minutes Critical care time (in minutes): 60 The high probability of a clinically significant, sudden or life threatening deterioration, as referenced in this documentation, required my full and direct attention, intervention and personal management. The critical care time shown is in addition to time spent performing any reported separately billable procedures and includes the following: [x] Data and vital sign review and interpretation [x ] Patient assessment, examination and intervention [x] Medication orders and management [x] Patient/Family updates as able [x] Care Coordination and Documentation. Diagnoses Septic shock A41.9; R65.21 Anemia D64.9 KARL (acute kidney injury) N17.9 Metabolic acidosis E87.20 Hyperkalemia E87.5 UTI (urinary tract infection) N39.0 Leukocytosis D72.829
[2023-01-07] MEDS: iron sucrose 200 MG in sodium chloride 0.9% (100 ml) 100 ML 220 MG IV (17:59)
--- NOTE | 2023-01-07 18:29 | PC.NURSE ---
Patient resting in bed, AAOx4, BP soft throughout shift with remaining VSS, OOBTC part of shift. Suarez removed, no new events during shift. Room clean and clutter free with call light within reach.
[2023-01-08] VITALS (44 sets, daily range): BP systolic 93–143; BP diastolic 52–80; PULSE 60–101; RESP 17–39; TEMP 36.3–38.3; O2SAT 91–98
[2023-01-08] MEDS: acetaminophen 325 mg Tablet 650 MG PO ×4 (00:38→20:46)
[2023-01-08] MEDS: dextrose 5%-sod chloride 0.9% 1,000 ML 75 ML IV ×2 (02:49→13:00)
[2023-01-08 03:53] LABS: Basophils % 0.1 %; Eosinophils # 0.1 10^3/uL (0.0-0.8); Eosinophils % 0.4 %; Hemoglobin 7.8 g/dL (11.5-15.3); Lymphocytes # 1.5 10^3/uL (0.8-4.8); Lymphocytes % 9.9 %; Mean Corpuscular HGB Conc 32.5 g/dL (30.0-36.0); Mean Corpuscular Volume 95.2 fl (81-99); Mean Platelet Volume 9.4 fL (7.4-10.4); Monocytes # 1.2 10^3/uL (0.2-0.9); Monocytes % 7.8 %; Neutrophils # 12.42 10^3/uL (1.8-7.7); Neutrophils % 79.9 %; Nucleated Red Blood Cells % 0 %; Platelet Count 213 10^3/cmm (130-400); Red Blood Count 2.52 10^6/uL (4.1-5.3); Red Cell Distribution Width 15.2 % (12.1-15.1); White Blood Count 15.6 10^3/uL (4.0-10.0)
[2023-01-08] MEDS: heparin 5,000 unit/mL INJ 1 mL 5000 UNIT SUBCUT ×2 (04:28→16:01)
[2023-01-08 04:37] LABS: Alanine Aminotransferase 37 U/L (0-33); Albumin Level 2.2 g/dL (3.5-5.2); Alkaline Phosphatase 78 U/L (35-105); Aspartate Amino Transferase 41 U/L (0-32); Blood Urea Nitrogen 25 mg/dL (8-23); Calcium 7.6 mg/dL (8.5-10.5); Carbon Dioxide 16 mmol/L (22-29); Chloride 111 mmol/L (98-107); Globulin 2.9 g/dL (1.3-4.6); Glucose 133 mg/dL (65-115); Osmolality Calculated 290 mOsm/kg (285-295); Sodium 137 mmol/L (136-145); Total Bilirubin 0.2 mg/dL (0.15-1.2); Total Protein 5.1 g/dL (6.6-8.7)
[2023-01-08 04:46] LABS: Anion Gap 13.5 (5-19); Potassium 3.5 mmol/L (3.5-5.1)
[2023-01-08] MEDS: levothyroxine 50 mcg Tablet PO (07:47)
[2023-01-08] MEDS: piperacillin-tazobactam 3.375 GM in sodium chloride 0.9% (plus) 50 ML IV ×2 (12:04→19:25)
--- NOTE | 2023-01-08 12:57 | PC.NURSE ---
Pt ready to nap. Eye mask and ear plugs provided for her comfort. No other needs per pt.
--- NOTE | 2023-01-08 13:05 | PC.SOCIAL ---
IMM update Imm updated with patient at bedside. Copy of page 2 provided. Patient verbalized understanding. Copy in chart initialed, dated and timed.
--- NOTE | 2023-01-08 14:42 | PM.PN ---
Subjective Subjective: No acute events overnight. Patient denies any nausea, vomiting, headache. Orthostatics negative today. States feeling better. Sleeping on examination but wakes up to verbal stimulus. Tmax of 101 Fahrenheit last night. Urine output in last 24 hours up to documented of 800 cc. Suarez removed yesterday. Vitals/I&O/Wt Last Vital Signs Temp 98.6 F 01/08/23 07:50 Pulse 64 01/08/23 12:00 Resp 21 H 01/08/23 12:00 BP 121/68 01/08/23 12:00 Pulse Ox 98 01/08/23 12:00 O2 Del Method Room Air 01/08/23 12:00 01/07/23 01/08/23 01/08/23 22:59 06:59 14:59 Intake Total 1495 / 3538.429 855 / 4393.429 440 / 440 Output Total 800 / 800 1 / 801 Balance 695 / 2738.429 854 / 3592.429 440 / 440 Weight last 48 hrs Weight 44.906 kg Weight 51.256 kg Physical Exam Narrative: General: No acute distress, AO x3, cachectic, chronically sick appearing, pallor present HEENT: PERRLA, pupils bilaterally equal and reactive Chest: Bilateral bronchial breath sounds all over lung rodriguez with occasional rhonchi all over lung rodriguez. CVS: S1-S2 regular, no murmurs, no tachycardia, no gallops, no rubs Abdomen: Soft, nontender, no organomegaly, bowel sounds present, morbidly obese Neuro: No focal deficits, no facial deformity, AO x3, power 5/5 in all limbs Urinary Catheter Management: Suarez: Cath Placed During This Visit: yes, but has since been removed by the nurse Reason for Continuing Indwelling Catheter: Decision to DC Catheter Urinary Catheter Date of Insertion: 01/05/23 Urinary Catheter Time of Insertion: 17:02 Date Urinary Catheter Removed: 01/07/23 Time Urinary Catheter Discontinued: 17:45 Data 01/08/23 03:04 01/08/23 03:04 Micro: Microbiology 01/08/23 13:30 Blood Culture - Preliminary Blood SPECIMEN COLLECTED 01/08/23 13:18 Blood Culture - Preliminary Blood SPECIMEN COLLECTED 01/06/23 12:22 Gram Stain - Final Sputum - Expectorated Sputum Sputum Culture - Preliminary 05/18/23 14:05 Urine Culture - Final Urine,Clean Catch Escherichia coli A&P Assessment and plan (1) Septic shock: Ruled in on admission in setting of leukocytosis, tachycardia, low blood pressures with endorgan damage of acute kidney injury and hyperkalemia Keep mean arterial pressure 65-70. Continue with D5 NS at 100 cc/h. Check orthostatics every 6 hourly. Blood cultures so far negative. Urine culture growing E. coli. Sensitivities appreciated. Antibiotics were switched to ceftriaxone yesterday. Patient continues to have persistent fever. Leukocytosis again worsening today. For now we will stop ceftriaxone and restart Zosyn. Not sensitive to Levaquin. Will most likely finish a 5 to 7-day course. Day 5 of antibiotics today. Cannot rule out underlying mild pyelonephritis. Given high-grade fever last night we will repeat blood cultures for now. Tick panel pending. LAURA Suarez. (2) Anemia: Post 1 unit of PRBC transfusion. Hemoglobin stable. Continue with IV iron supplementation for 5 days. Day 2/5 today. Appreciate folate and vitamin B12 levels. IV Protonix 40 mg daily. (3) KARL (acute kidney injury): Baseline CKD. Baseline creatinine 1.6. Worsening in setting of dehydration, shock along with use of Bactrim at home. Associated with metabolic acidosis and hyperkalemia. Resolved. Creatinine down to baseline. Strict input output charting. Stop IV fluids. CT abdomen pelvis ruled out obstructive nephropathy. Medical reconciliation done for nephrotoxic drugs. Continue to monitor BMP daily. (4) Metabolic acidosis: (5) Hyperkalemia: (6) UTI (urinary tract infection): (7) Leukocytosis: Leukocytosis has resolved today. Continue to monitor. Lymphoma panel was sent in yesterday. Plan Analgesia: Tylenol as needed Glycemic control: A1c 5.4. Not needed. Currently hypoglycemia. Hypoglycemia protocol. D5 as above. Nutrition: Renal nondialysis diet. CODE STATUS: Full code. Discussed in detail at bedside with son and patient. Son will be the DPOA. Would not want to remain on life support for long. PUD prophylaxis: Protonix DVT prophylaxis: Heparin 5000 every 12 hourly. Discharge planning: Back home with caregiver if patient remains hemodynamically stable and afebrile in next 24 hours.. Transfer to [facility]. This documentation was created by [employer] animal shelter manager software. Every effort was made to ensure accuracy of animal shelter manager. Any obvious errors or omissions should be clarified with the author of the document. Attestations Medical Necessity Statement*: Requires further hospitalization for management of sepsis in setting of UTI requiring IV antibiotics Diagnoses Septic shock A41.9; R65.21 Anemia D64.9 KARL (acute kidney injury) N17.9 Metabolic acidosis E87.20 Hyperkalemia E87.5 UTI (urinary tract infection) N39.0 Leukocytosis D72.829
--- NOTE | 2023-01-08 16:00 | PC.NURSE ---
Report called to [facility] for room 250-1. Report given to Pedro.
--- NOTE | 2023-01-08 16:13 | PC.NURSE ---
Pt up to [facility]. Then transferred to [facility] room 250-1. All belonging with patient. Notified son, Edwin Suarez, of transfer and room #.
[2023-01-08] MEDS: iron sucrose 200 MG in sodium chloride 0.9% (100 ml) 100 ML 220 MG IV (18:21)
[2023-01-08] MEDS: pantoprazole 40 mg SDV IVP (18:36)
[2023-01-09] VITALS (7 sets, daily range): BP systolic 129–158; BP diastolic 72–84; PULSE 69–104; RESP 18–19; TEMP 36.6–36.9; O2SAT 92–94
[2023-01-09] MEDS: piperacillin-tazobactam 3.375 GM in sodium chloride 0.9% (plus) 50 ML IV ×3 (02:15→18:46)
[2023-01-09] MEDS: heparin 5,000 unit/mL INJ 1 mL 5000 UNIT SUBCUT ×2 (03:45→17:07)
[2023-01-09] MEDS: acetaminophen 325 mg Tablet 650 MG PO (09:28)
[2023-01-09] MEDS: levothyroxine 50 mcg Tablet PO (09:29)
[2023-01-09 12:55] LABS: Basophils % 0.2 %; Eosinophils # 0.3 10^3/uL (0.0-0.8); Eosinophils % 1.9 %; Hematocrit 27.2 % (37.0-47.0); Hemoglobin 8.6 g/dL (11.5-15.3); Lymphocytes # 2.1 10^3/uL (0.8-4.8); Mean Corpuscular HGB Conc 31.6 g/dL (30.0-36.0); Mean Corpuscular Hemoglobin 30.7 pg (28.0-34.0); Mean Corpuscular Volume 97.1 fl (81-99); Mean Platelet Volume 9.3 fL (7.4-10.4); Monocytes # 1.2 10^3/uL (0.2-0.9); Monocytes % 6.8 %; Neutrophils # 12.95 10^3/uL (1.8-7.7); Neutrophils % 75.8 %; Nucleated Red Blood Cells % 0 %; Platelet Count 263 10^3/cmm (130-400); Red Cell Distribution Width 15.4 % (12.1-15.1); White Blood Count 17.1 10^3/uL (4.0-10.0)
[2023-01-09 13:08] LABS: Anion Gap 14.6 (5-19); Blood Urea Nitrogen 17 mg/dL (8-23); Calcium 8.3 mg/dL (8.5-10.5); Carbon Dioxide 17 mmol/L (22-29); Chloride 108 mmol/L (98-107); Glucose 113 mg/dL (65-115); Osmolality Calculated 284 mOsm/kg (285-295); Potassium 3.6 mmol/L (3.5-5.1); Sodium 136 mmol/L (136-145)
--- NOTE | 2023-01-09 13:56 | P.PN_ITS ---
Subjective Subjective: Patient was seen and examined this morning, clinically she is doing better, has been afebrile for more than 24 hours, unfortunately WBC count is going up. Medications: Medication Review Details: Generic Name Dose Route Start Last Admin Trade Name Tona PRN Reason Stop Dose Admin Acetaminophen 650 mg 01/05/23 16:26 01/09/23 09:28 Acetaminophen 32 5 Mg Tablet PO 650 mg Q6H PRN Administration Mild/Mod Pain Or Temp >/= 101 Heparin Sodium (Po rcine) 5,000 unit 01/05/23 16:26 01/09/23 03:45 Heparin 5,000 Un it/Ml Inj 1 Ml SUBCUT 5,000 unit Q12H MARY Administration Norepinephrine Bit artrate 4 mg 254 mls @ 0 mls/h r 01/06/23 10:15 01/07/23 10:17 / Dextrose IV 0 mcg/min .Q0M MARY 0 mls/hr Titration Protocol Per Protocol Iron Sucrose 200 m g/ Sodium 110 mls @ 220 mls /hr 01/07/23 18:00 01/08/23 19:08 Chloride IV 01/11/23 18:29 Infused Q24H MARY Infusion Piperacillin Sod/T azobactam 50 mls @ 12.5 mls /hr 01/08/23 10:30 01/09/23 11:58 Sod 3.375 gm/ So dium Chloride IV 12.5 mls/hr Q8H MARY Administration Protocol Levothyroxine Sodi um 50 mcg 01/06/23 09:00 01/09/23 09:29 Levothyroxine 50 Mcg Tablet PO 50 mcg DAILY MARY Administration Pantoprazole Sodiu m 40 mg 01/05/23 17:00 01/08/23 18:36 Pantoprazole 40 Mg Sdv IVP 40 mg Q24H MARY Administration Vitals/I&O/Wt Last Vital Signs Temp 98.0 F 01/09/23 12:00 Pulse 87 01/09/23 12:00 Resp 18 01/09/23 12:00 BP 129/72 01/09/23 12:00 Pulse Ox 93 01/09/23 12:00 O2 Del Method Room Air 01/09/23 12:00 01/08/23 01/09/23 01/09/23 22:59 06:59 14:59 Intake Total 670 / 2110 460 / 2570 240 / 240 Output Total Balance 670 / 2110 459 / 2569 240 / 240 Weight last 48 hrs Weight 54.839 kg Weight 44.906 kg Physical Exam Const: COMMON NORMALS: patient oriented x3 HENMT: COMMON NORMALS: normocephalic and atraumatic HEAD & SCALP: normo cephalic and atraumatic Resp: COMMON NORMALS: normal respiratory effort, No retractions, No use of accessory muscles and clear to auscultation bilaterally EFFORT & INSPECTION: Yes symmetric chest movement AUSCULTATION: clear to auscultation bilaterally Cardio: COMMON NORMALS: regular rate, regular rhythm, S1 normal heart sound present, S2 normal heart sound present, No gallops present (Cardio), No murmurs present (Cardio), No rub (Cardio) and Peripheral pulses 2+ throughout RATE: regular rate RHYTHM: regular rhythm HEART SOUNDS: S1 normal heart sound present and S2 normal heart sound present PERIPHERAL PULSES: Peripheral p ulses 2+ throughout GI: COMMON NORMALS: Normal to inspection, nondistended, normoactive bowel sounds present, Soft to palpation, non-tender, No hepatosplenomegaly present and no masses AUSCULTATION: Yes normoactive bowel sounds PALPATION: Yes Soft to palpation and Yes No hepatosplenomegaly present RECTAL EXAM: deferred Extremity: COMMON NORMALS: no clubbing, cyanosis or edema and no pedal edema Neuro: COMMON NORMALS: patient oriented x3 Urinary Catheter Management: Suarez: Cath Placed During This Visit: yes, but has since been removed by the nurse Reason for Continuing Indwelling Catheter: Decision to DC Catheter Urinary Catheter Date of Insertion: 01/05/23 Urinary Catheter Time of Insertion: 17:02 Date Urinary Catheter Removed: 01/07/23 Time Urinary Catheter Discontinued: 17:45 Data 01/09/23 12:40 01/09/23 12:40 Micro: Microbiology 01/08/23 13:30 Blood Culture - Preliminary Blood NEGATIVE TO DATE 01/08/23 13:18 Blood Culture - Preliminary Blood NEGATIVE TO DATE 01/06/23 12:22 Gram Stain - Final Sputum - Expectorated Sputum Sputum Culture - Final A&P Assessment and plan (1) Septic shock: Ruled in on admission in setting of leukocytosis, tachycardia, low blood pressures with endorgan damage of acute kidney injury and hyperkalemia Keep mean arterial pressure 65-70. Continue with D5 NS at 100 cc/h. Check orthostatics every 6 hourly. Blood cultures so far negative. Urine culture growing E. coli. Sensitivities appreciated. Antibiotics were switched to ceftriaxone yesterday. Patient continues to have persistent fever. Leukocytosis again worsening today. For now we will stop ceftriaxone and restart Zosyn. Not sensitive to Levaquin. Will most likely finish a 5 to 7-day course. Day 5 of antibiotics today. Cannot rule out underlying mild pyelonephritis. Given high-grade fever last night we will repeat blood cultures for now. Tick panel pending. LAURA Suarez. (2) Anemia: Post 1 unit of PRBC transfusion. Hemoglobin stable. Continue with IV iron supplementation for 5 days. Day 2/5 today. Appreciate folate and vitamin B12 levels. IV Protonix 40 mg daily. (3) KARL (acute kidney injury): Baseline CKD. Baseline creatinine 1.6. Worsening in setting of dehydration, shock along with use of Bactrim at home. Associated with metabolic acidosis and hyperkalemia. Resolved. Creatinine down to baseline. Strict input output charting. Stop IV fluids. CT abdomen pelvis ruled out obstructive nephropathy. Medical reconciliation done for nephrotoxic drugs. Continue to monitor BMP daily. (4) Metabolic acidosis: (5) Hyperkalemia: (6) UTI (urinary tract infection): (7) Leukocytosis: Continue to monitor. Follow leukemia and lymphoma panel Plan Analgesia: Tylenol as needed Glycemic control: A1c 5.4. Not needed. Currently hypoglycemia. Hypoglycemia protocol. D5 as above. Nutrition: Renal nondialysis diet. CODE STATUS: Full code. PUD prophylaxis: Protonix DVT prophylaxis: Heparin 5000 every 12 hourly. Attestations Medical Necessity Statement*: Needs to be in hospital for IV antibiotics Coding Level of Care Code Acute Code for Chg Fwd Diagnoses Septic shock A41.9; R65.21 Anemia D64.9 KARL (acute kidney injury) N17.9 Metabolic acidosis E87.20 Hyperkalemia E87.5 UTI (urinary tract infection) N39.0 Leukocytosis D72.829
[2023-01-09 14:59] LABS: Lyme AB Screen <0.90 index
[2023-01-09] MEDS: pantoprazole 40 mg SDV IVP (17:09)
--- NOTE | 2023-01-09 18:00 | PC.NURSE ---
Could not get patients PICC to pull back blood. Stuck patient in the right hand for lab blood draw.
[2023-01-09] MEDS: iron sucrose 200 MG in sodium chloride 0.9% (100 ml) 100 ML 20 MG IV (18:01)
[2023-01-10] VITALS: BP 131/72; PULSE 74; RESP 17; TEMP 36.5; O2SAT 93
[2023-01-10] MEDS: piperacillin-tazobactam 3.375 GM in sodium chloride 0.9% (plus) 50 ML IV ×3 (02:09→18:52)
[2023-01-10 04:00] VITALS: BP 135/77; BP 151/80; BP 155/76; PULSE 83; RESP 19; TEMP 36.6; O2SAT 92
[2023-01-10] MEDS: heparin 5,000 unit/mL INJ 1 mL 5000 UNIT SUBCUT ×2 (04:19→16:42)
[2023-01-10 05:24] LABS: Basophils # 0.1 10^3/uL (0.0-0.1); Basophils % 0.3 %; Eosinophils # 0.6 10^3/uL (0.0-0.8); Eosinophils % 3.5 %; Hematocrit 25.8 % (37.0-47.0); Hemoglobin 8.3 g/dL (11.5-15.3); Lymphocytes # 2.7 10^3/uL (0.8-4.8); Lymphocytes % 15.3 %; Mean Corpuscular HGB Conc 32.2 g/dL (30.0-36.0); Mean Corpuscular Volume 96.3 fl (81-99); Monocytes # 1.2 10^3/uL (0.2-0.9); Monocytes % 6.6 %; Neutrophils # 12.76 10^3/uL (1.8-7.7); Neutrophils % 71.4 %; Nucleated Red Blood Cells % 0 %; Platelet Count 308 10^3/cmm (130-400); Red Blood Count 2.68 10^6/uL (4.1-5.3); Red Cell Distribution Width 15.2 % (12.1-15.1); White Blood Count 17.9 10^3/uL (4.0-10.0)
[2023-01-10 05:41] LABS: Alanine Aminotransferase 44 U/L (0-33); Albumin Level 2.5 g/dL (3.5-5.2); Alkaline Phosphatase 93 U/L (35-105); Anion Gap 14.1 (5-19); Aspartate Amino Transferase 43 U/L (0-32); Blood Urea Nitrogen 18 mg/dL (8-23); Calcium 8.1 mg/dL (8.5-10.5); Carbon Dioxide 19 mmol/L (22-29); Chloride 109 mmol/L (98-107); Globulin 3.2 g/dL (1.3-4.6); Glucose 72 mg/dL (65-115); Osmolality Calculated 286 mOsm/kg (285-295); Potassium 4.1 mmol/L (3.5-5.1); Sodium 138 mmol/L (136-145); Total Bilirubin 0.3 mg/dL (0.15-1.2); Total Protein 5.7 g/dL (6.6-8.7)
[2023-01-10] MEDS: acetaminophen 325 mg Tablet 650 MG PO (06:27)
[2023-01-10 07:48] VITALS: BP 146/67; PULSE 71; RESP 17; TEMP 36.8; O2SAT 94
[2023-01-10 08:01] LABS: Leukemia Profile (BBPL) See Report; Lymphoma Profile (BBPL) See Report
[2023-01-10] MEDS: levothyroxine 50 mcg Tablet PO (09:20)
--- NOTE | 2023-01-10 10:35 | PC.SOCIAL ---
IMM update Imm updated with patient at bedside. Copy of page 2 provided. Patient verbalized understanding. Copy in chart initialed, dated and timed.
--- NOTE | 2023-01-10 10:38 | CT_ITS ---
WS: [id number] CT CHEST TECHNIQUE: Contrast enhanced CT of the chest with coronal and sagittal reformatted images. CLINICAL INFORMATION: SOB COMPARISON: None. DLP: 265.[address] scans at [facility] use at least one of these dose optimization techniques: automated e xposure control; mA and/or kV adjustment per patient size (includes targeted exams where dose is matc hed to clinical indication); or iterative reconstruction. FINDINGS: Small bilateral pleural effusions RIGHT greater than LEFT. Compressive atelectasis in the lung bases. Trace pericardial fluid. Normal caliber ascending thoracic aorta. Normal caliber descending thoracic aorta. Aortic calcification. Enlarged proximal main pulmonary arteries can be seen with pulmonary ar terial hypertension. No axillary lymphadenopathy. Coronary calcification. Moderate esophageal hiatal hernia. Adrenal gland s are normal. Moderate spondylitic changes thoracic spine. Mild thoracic kyphosis. . CT/CT chest w con* [id number] IMPRESSION: 1. Small RIGHT greater than LEFT pleural effusions. Compressive atelectasis in the lung bases. 2. Enlarged main pulmonary arteries can be seen with pulmonary arterial hypert ension. 3. RIGHT PICC line with tip in good position. 4. Moderate esophageal hiatal hernia. 5. No other acute findings.
[2023-01-10 11:36] VITALS: BP 118/65; PULSE 74; RESP 15; TEMP 36.4; O2SAT 97
[2023-01-10] MEDS: montelukast sodium 10 mg Tablet PO (12:00)
[2023-01-10] MEDS: cetirizine 10 mg Tablet PO (12:00)
[2023-01-10] MEDS: fluticasone nasal spray 16gm Btl 1 SPRAY NASAL ×2 (12:00→21:23)
--- NOTE | 2023-01-10 13:15 | PM.PN ---
Subjective Subjective: Patient was seen and examined this morning, she was complaining of runny nose, was annoyed with allergic symptoms, was also complaining of cough, WBC count has continued to trend up currently to 17.9 today. Fortunately she has remained afebrile, Medications: Medication Review Details: Generic Name Dose Route Start Last Admin Trade Name Romanq PRN Reason Stop Dose Admin Acetaminophen 650 mg 01/05/23 16:26 01/10/23 06:27 Acetaminophen 32 5 Mg Tablet PO 650 mg Q6H PRN Administration Mild/Mod Pain Or Temp >/= 101 Cetirizine HCl 10 mg 01/10/23 10:40 01/10/23 12:00 Cetirizine 10 Mg Tablet PO 10 mg DAILY MARY Administration Fluticasone Propio darrel 1 spray 01/10/23 10:40 01/10/23 12:00 Fluticasone [employer] 16gm Btl NASAL 1 spray BID MARY Administration Heparin Sodium (Po rcine) 5,000 unit 01/05/23 16:26 01/10/23 04:19 Heparin 5,000 Un it/Ml Inj 1 Ml SUBCUT 5,000 unit Q12H MARY Administration Norepinephrine Bit artrate 4 mg 254 mls @ 0 mls/h r 01/06/23 10:15 01/07/23 10:17 / Dextrose IV 0 mcg/min .Q0M MARY 0 mls/hr Titration Protocol Per Protocol Iron Sucrose 200 m g/ Sodium 110 mls @ 220 mls /hr 01/07/23 18:00 01/09/23 23:48 Chloride IV 01/11/23 18:29 Infused Q24H MARY Infusion Piperacillin Sod/T azobactam 50 mls @ 12.5 mls /hr 01/08/23 10:30 01/10/23 11:18 Sod 3.375 gm/ So dium Chloride IV 12.5 mls/hr Q8H MARY Administration Protocol Levothyroxine Sodi um 50 mcg 01/06/23 09:00 01/10/23 09:20 Levothyroxine 50 Mcg Tablet PO 50 mcg DAILY MARY Administration Montelukast Sodium 10 mg 01/10/23 10:40 01/10/23 12:00 Montelukast Sodi um 10 Mg Tablet PO 10 mg DAILY MARY Administration Pantoprazole Sodiu m 40 mg 01/05/23 17:00 01/09/23 17:09 Pantoprazole 40 Mg Sdv IVP 40 mg Q24H MARY Administration Vitals/I&O/Wt Last Vital Signs Temp 97.6 F 01/10/23 11:36 Pulse 74 01/10/23 11:36 Resp 15 01/10/23 11:36 BP 118/65 01/10/23 11:36 Pulse Ox 97 01/10/23 11:36 O2 Del Method Room Air 01/09/23 15:54 01/09/23 01/10/23 01/10/23 22:59 06:59 14:59 Intake Total 340 / 580 160 / 740 118 / 118 Balance 340 / 580 160 / 740 118 / 118 Weight last 48 hrs Weight 60.509 kg Weight 54.839 kg Physical Exam Const: COMMON NORMALS: patient oriented x3 HENMT: COMMON NORMALS: normocephalic and atraumatic HEAD & SCALP: normocephalic and atraumatic Resp: COMMON NORMALS: normal respiratory effort, No retractions, No use of accessory muscles and clear to auscultation bilaterally EFFORT & INSPECTION: Yes symmetric chest movement AUSCULTATION: clear to auscultation bilaterally Cardio: COMMON NORMALS: regular rate, regular rhythm, S1 normal heart sound present, S2 normal heart sound present, No gallops present (Cardio), No murmurs present (Cardio), No rub (Cardio) and Peripheral pulses 2+ throughout RATE: regular rate RHYTHM: regular rhythm HEART SOUNDS: S1 normal heart sound present and S2 normal heart sound present PERIPHERAL PULSES: Peripheral pulses 2+ throughout GI: COMMON NORMALS: Normal to inspection, nondistended, normoactive bowel sounds present, Soft to palpation, non-tender, No hepatosplenomegaly present and no masses AUSCULTATION: Yes normoactive bowel sounds PALPATION: Yes Soft to palpation and Yes No hepatosplenomegaly present RECTAL EXAM: deferred Extremity: COMMON NORMALS: no clubbing, cyanosis or edema and no pedal edema Neuro: COMMON NORMALS: patient oriented x3 Urinary Catheter Management: Suarez: Cath Placed During This Visit: yes, but has since been removed by the nurse Reason for Continuing Indwelling Catheter: Decision to DC Catheter Urinary Catheter Date of Insertion: 01/05/23 Urinary Catheter Time of Insertion: 17:02 Date Urinary Catheter Removed: 01/07/23 Time Urinary Catheter Discontinued: 17:45 Data 01/10/23 04:14 01/10/23 04:14 Micro: Microbiology 01/08/23 13:30 Blood Culture - Preliminary Blood NEGATIVE TO DATE 01/08/23 13:18 Blood Culture - Preliminary Blood NEGATIVE TO DATE 01/06/23 12:22 Gram Stain - Final Sputum - Expectorated Sputum Sputum Culture - Final A&P Assessment and plan (1) Septic shock: (2) Anemia: (3) KARL (acute kidney injury): (4) Metabolic acidosis: (5) Hyperkalemia: (6) UTI (urinary tract infection): (7) Leukocytosis: Plan 78-year-old female with past medical history of hypertension hypothyroidism, persistent chronic leukocytosis, Was admitted with chief complaint of not feeling well overall, lethargic, she was sent in by her primary care physician's as they found significant leukocytosis, more than her baseline, she was taking Bactrim as outpatient. During the hospital stay she is being managed for septic shock secondary to UTI: CT abdomen pelvis wo con: Has not shown any acute finding,Mild chronic perinephric stranding. CT chest w con:?Small RIGHT greater than LEFT pleural effusions. Compressive atelectasis in the lung bases. Right upper quadrant ultrasound: Was ordered for transaminitis, is normal , Blood culture negative till date, urine culture E. coli, MRSA PCR negative, urine Legionella antigen negative, bacterial antigen panel negative, sputum Gram stain culture: Budding yeast, few gram-positive cocci, gram-negative cocci in pairs. COVID-negative, Lyme's negative, rest of tick panel pending. lymphoma panel negative,She has been empirically on broad-spectrum antibiotics.Initially she was on vasopressor support has been weaned off. If she continues to remain afebrile, and white blood cell count, continues to stay around her baseline, will discontinue antibiotics. During the hospital stay patient was also managed for: Anemia she received 1 unit PRBC, she was also on IV iron, H&H was monitored. She was also managed for KARL on CKD multifactorial likely secondary to sepsis recent Bactrim use, CT abdomen and pelvis ruled out any obstructive uropathy , she was on IV hydration, intake output monitoring was done nephrotoxic's were avoided ,currently KARL has resolved, hyperkalemia has also resolved. If the patient continues to remain afebrile and hemodynamically stable today We will plan to discharge her tomorrow. She will need to follow-up with repeat CBC and BMP in 1 to 2 weeks with her primary care physician. Attestations Medical Necessity Statement*: Needs to be in hospital for IV antibiotics. Coding Level of Care Code Acute Code for Chg Fwd Diagnoses Septic shock A41.9; R65.21 Anemia D64.9 KARL (acute kidney injury) N17.9 Metabolic acidosis E87.20 Hyperkalemia E87.5 UTI (urinary tract infection) N39.0 Leukocytosis D72.829
[2023-01-10] MEDS: acetaminophen 500 mg Tablet PO ×2 (15:00→21:23)
[2023-01-10] MEDS: pantoprazole 40 mg SDV IVP (16:42)
[2023-01-10] MEDS: iron sucrose 200 MG in sodium chloride 0.9% (100 ml) 100 ML IV (18:06)
[2023-01-10 20:00] VITALS: BP 134/75; PULSE 72; RESP 19; TEMP 36.6; O2SAT 94
[2023-01-11] VITALS: BP 151/73; PULSE 62; RESP 17; TEMP 36.4; O2SAT 94
[2023-01-11] MEDS: piperacillin-tazobactam 3.375 GM in sodium chloride 0.9% (plus) 50 ML IV ×2 (03:18→11:03)
[2023-01-11 03:32] LABS: Basophils # 0.1 10^3/uL (0.0-0.1); Basophils % 0.3 %; Eosinophils # 0.8 10^3/uL (0.0-0.8); Eosinophils % 4.7 %; Hematocrit 25.5 % (37.0-47.0); Lymphocytes # 3.2 10^3/uL (0.8-4.8); Lymphocytes % 17.8 %; Mean Corpuscular HGB Conc 31.4 g/dL (30.0-36.0); Mean Corpuscular Hemoglobin 30.5 pg (28.0-34.0); Mean Corpuscular Volume 97.3 fl (81-99); Mean Platelet Volume 9.3 fL (7.4-10.4); Monocytes # 1.2 10^3/uL (0.2-0.9); Neutrophils # 12.03 10^3/uL (1.8-7.7); Neutrophils % 67.6 %; Nucleated Red Blood Cells % 0 %; Platelet Count 322 10^3/cmm (130-400); Red Blood Count 2.62 10^6/uL (4.1-5.3); Red Cell Distribution Width 15.1 % (12.1-15.1); White Blood Count 17.8 10^3/uL (4.0-10.0)
[2023-01-11] MEDS: heparin 5,000 unit/mL INJ 1 mL 5000 UNIT SUBCUT (03:44)
[2023-01-11 03:57] LABS: Alanine Aminotransferase 42 U/L (0-33); Albumin Level 2.5 g/dL (3.5-5.2); Alkaline Phosphatase 89 U/L (35-105); Anion Gap 11.9 (5-19); Aspartate Amino Transferase 39 U/L (0-32); Blood Urea Nitrogen 16 mg/dL (8-23); Carbon Dioxide 20 mmol/L (22-29); Chloride 109 mmol/L (98-107); Globulin 3.1 g/dL (1.3-4.6); Glucose 78 mg/dL (65-115); Osmolality Calculated 284 mOsm/kg (285-295); Potassium 3.9 mmol/L (3.5-5.1); Sodium 137 mmol/L (136-145); Total Bilirubin 0.3 mg/dL (0.15-1.2); Total Protein 5.6 g/dL (6.6-8.7)
[2023-01-11 04:00] VITALS: BP 149/78; PULSE 66; RESP 18; TEMP 36.8; O2SAT 95
[2023-01-11] MEDS: acetaminophen 500 mg Tablet PO (07:27)
[2023-01-11 07:51] VITALS: BP 144/72; PULSE 72; RESP 17; TEMP 36.8; O2SAT 95
[2023-01-11] MEDS: cetirizine 10 mg Tablet PO (08:52)
[2023-01-11] MEDS: montelukast sodium 10 mg Tablet PO (08:52)
[2023-01-11] MEDS: levothyroxine 50 mcg Tablet PO (08:52)
[2023-01-11] MEDS: fluticasone nasal spray 16gm Btl 1 SPRAY NASAL (08:52)
[2023-01-11 10:00] VITALS: BP 140/72; BP 155/85; PULSE 96; PULSE 97
--- NOTE | 2023-01-11 10:34 | PC.CHAP ---
Pastoral Care Encounter/Spiritual Assessment Type of Contact [] Declined flakeboard line tender visit [] Patient/Family/Request visit [] Outpatient visit [] Follow-up visit [] Physician referral [] Code/Alert [x] Routine visit [] Staff referral [] Actively dying [] Patient sleeping [x] Family support [] [] Out of room [] Palliative care [] [] Receiving care in room [] Pre-surgical visit [] Trauma [] Long length of stay [] ICU visit [] Other: Relational/Emotional Strength [x] Patient feels connected with others/family/visitors/staff [] Distress [] Loneliness/isolation [] Abandonment Spirituality of Patient [x] Person of Meche [] Attends Episcopal of their Meche []x Believes in Prayer [] Reads Bible or Advent materials [] There are Spiritual issues to be addressed Pecan Grower Interventions [x] Prayer [] Active listening [] Non-anxious presence [] Spiritual/emotional support [] Crisis/trauma care [] Spiritual counseling [] Bereavement support [] Provided bereavement packet [] Provided Bible/devotional materials [] Provided toy/stuffed animal, coloring book to patient or family member [] Provided Communion [] Anointing/[place] [] Salvation [x] Completed spiritual assessment [] Other: Impact on Illness or Injury [] Angry [] Fearful [] Anxious [] Often cries [] Exhaustion [] Unable to work [] Unable to attend sabianism [] Unable to walk/stand [] Unable to read [] Unable to drive [] Unable to eat/drink [] Unable to sleep [] Unable to be with family [] Patient intubated [] Other: Summary Time spent with patient 5 min
[2023-01-11 11:36] VITALS: BP 146/82; PULSE 84; RESP 17; TEMP 36.7; O2SAT 98
--- NOTE | 2023-01-11 12:20 | P.DS_ITS ---
Discharge Providers Date of Admission: 01/05/23 16:05 Date of Discharge: January 11, 2023 Attending Provider at Admission: Po Mansfield MD Attending Provider at Discharge: Gelacio Alberto MD Primary Care Provider: Talib Xiong MD Diagnoses at Discharge Discharge Diagnosis (1) Septic shock: Status: Acute (2) Anemia: Status: Acute (3) KARL (acute kidney injury): Status: Acute (4) Metabolic acidosis: Status: Acute (5) Hyperkalemia: Status: Acute (6) UTI (urinary tract infection): Status: Acute (7) Leukocytosis: Status: Acute Reason for Visit Reason for Visit: wbc high sent from [facility] Course Hospital Course 78-year-old female with past medical history of hypertension hypothyroidism, persistent chronic leukocytosis, Was admitted with chief complaint of not feeling well overall, lethargic, she was sent in by her primary care physician's as they found significant leukocytosis, more than her baseline, she was taking Bactrim as outpatient. During the hospital stay she is being managed for septic shock secondary to UTI: CT abdomen pelvis wo con: Has not shown any acute finding,Mild chronic perinephric stranding. CT chest w con:?Small RIGHT greater than LEFT pleural effusions. Compressive atelectasis in the lung bases. Right upper quadrant ultrasound: Was ordered for transaminitis, is normal , Blood culture negative till date, urine culture E. coli, MRSA PCR negative, urine Legionella antigen negative, bacterial antigen panel negative, sputum Gram stain culture: Budding yeast, few gram-positive cocci, gram-negative cocci in pairs.? COVID-negative, Lyme's negative, rest of tick panel pending. lymphoma panel negative,She has been empirically on broad-spectrum antibiotics.Initially she was on vasopressor support has been weaned off. If she continues to remain afebrile, and white blood cell count, continues to stay around her baseline, will discontinue antibiotics.? During the hospital stay patient was also managed for: Anemia she received 1 unit PRBC, she was also on IV iron, H&H was monitored.? She was also managed for KARL on CKD multifactorial likely secondary to sepsis recent Bactrim use, CT abdomen and pelvis ruled out any obstructive uropathy , she was on IV hydration, intake output monitoring was done nephrotoxic's were avoided ,currently KARL has resolved, hyperkalemia has also resolved. If the patient continued to remain afebrile and hemodynamically stable, she was discharged on p.o. Augmentin for another 7 days She has been asked to follow with her primary care physician in a week with repeat CBC, patient might benefit from oncology consult, given her history of elevated white cell count. Physical Exam Const: COMMON NORMALS: patient oriented x3 HENMT: COMMON NORMALS: normocephalic and atraumatic HEAD & SCALP: normocephalic and atraumatic Resp: COMMON NORMALS: normal respiratory effort, No retractions, No use of accessory muscles and clear to auscultation bilaterally EFFORT & INSPECTION: Yes symmetric chest movement AUSCULTATION: clear to auscultation bilaterally Cardio: COMMON NORMALS: regular rate, regular rhythm, S1 normal heart sound present, S2 normal heart sound present, No gallops present (Cardio), No murmurs present (Cardio), No rub (Cardio) and Peripheral pulses 2+ throughout RATE: regular rate RHYTHM: regular rhythm HEART SOUNDS: S1 normal heart sound present and S2 normal heart sound present PERIPHERAL PULSES: Peripheral pulses 2+ throughout GI: COMMON NORMALS: Normal to inspection, nondistended, normoactive bowel sounds present, Soft to palpation, non-tender, No hepatosplenomegaly present and no masses AUSCULTATION: Yes normoactive bowel sounds PALPATION: Yes Soft to palpation and Yes No hepatosplenomegaly present RECTAL EXAM: deferred Extremity: COMMON NORMALS: no clubbing, cyanosis or edema and no pedal edema Neuro: COMMON NORMALS: patient oriented x3 Urinary Catheter Management: Suarez: Cath Placed During This Visit: yes, but has since been removed by the nurse Reason for Continuing Indwelling Catheter: Decision to DC Catheter Urinary Catheter Date of Insertion: 01/05/23 Urinary Catheter Time of Insertion: 17:02 Date Urinary Catheter Removed: 01/07/23 Time Urinary Catheter Discontinued: 17:45 Discharge Data Studies Completed and Pending Completed Studies During Hospitalization Category Date Time Status CT abdomen pelvis wo con [id number] Routine Cat Scan 01/05/23 16:[address] chest w con* [id number] Routine Cat Scan 01/10/23 10:38 Completed CXRP [XR chest 1V portable [id number]] Routine Exams 01/06/23 12:53 Completed XR chest 1V portable [id number] Stat Exams 05/18/23 12:52 Completed CV. echo complete* [id number] Routine Ultrasound 01/06/23 16:30 Completed US gall bladder [id number] Stat Ultrasound 01/05/23 14:10 Completed Pending at discharge Category Date Time Status Blood Culture Stat Lab 01/08/23 13:30 Results CBC Auto Diff [Complete Blood Count w/Auto] AM LABS Lab 01/12/23 04:00 Ordered CMP [Comprehensive Metabolic Panel] AM LABS Lab 01/12/23 04:00 Ordered Clostridioides Difficile PCR Routine Lab 01/05/23 16:24 Ordered Enteric Bacterial Panel by PCR Routine Lab 01/05/23 16:24 Ordered Enteric Parasite Panel by PCR Routine Lab 01/05/23 16:24 Ordered Immunochemical Fecal OCB Routine Lab 01/05/23 16:24 Ordered Lactoferrin Routine Lab 01/05/23 16:24 Ordered Tick Panel Stat Lab 01/05/23 17:13 Results Radiology Impressions Gallbladder Ultrasound 01/05/23 14:10 IMPRESSION: Normal RIGHT upper quadrant ultrasound. Abdomen/Pelvis CT 01/05/23 16:13 IMPRESSION: 1. No acute findings. 2. Fluid and gaseous distension of the proximal and transverse colon could indicate ileus. No wall thickening to suggest colitis. Chest X-Ray 01/06/23 12:53 Impression: Satisfactory placement of right PICC line. Chest CT 01/10/23 10:38 IMPRESSION: 1. Small RIGHT greater than LEFT pleural effusions. Compressive atelectasis in the lung bases. 2. Enlarged main pulmonary arteries can be seen with pulmonary arterial hypertension. 3. RIGHT PICC line with tip in good position. 4. Moderate esophageal hiatal hernia. 5. No other acute findings. Laboratory Results WBC 17.8 10^3/uL (4.0-10.0) H 01/11/23 03:24 Corrected WBC Cancelled 01/06/23 05:29 RBC 2.62 10^6/uL (4.1-5.3) L 01/11/23 03:24 Hgb 8.0 g/dL (11.5-15.3) L 01/11/23 03:24 Hct 25.5 % (37.0-47.0) L 01/11/23 03:24 MCV 97.3 fl (81-99) 01/11/23 03:24 MCH 30.5 pg (28.0-34.0) 01/11/23 03:24 MCHC 31.4 g/dL (30.0-36.0) 01/11/23 03:24 RDW 15.1 % (12.1-15.1) 01/11/23 03:24 Plt Count 322 10^3/cmm (130-400) 01/11/23 03:24 MPV 9.3 fL (7.4-10.4) 01/11/23 03:24 Gran % Cancelled 01/06/23 05:29 Neut % (Auto) 67.6 % 01/11/23 03:24 Lymph % (Auto) 17.8 % 01/11/23 03:24 [place] % (Auto) 7.0 % 01/11/23 03:24 Eos % (Auto) 4.7 % 01/11/23 03:24 Baso % (Auto) 0.3 % 01/11/23 03:24 Reticulocyte % (Auto) 1.3 % (0.5-2.0) 01/06/23 07:40 Neut # (Auto) 12.03 10^3/uL (1.8-7.7) H 01/11/23 03:24 Lymph # (Auto) 3.2 10^3/uL (0.8-4.8) 01/11/23 03:24 [place] # (Auto) 1.2 10^3/uL (0.2-0.9) H 01/11/23 03:24 Eos # (Auto) 0.8 10^3/uL (0.0-0.8) 01/11/23 03:24 Baso # (Auto) 0.1 10^3/uL (0.0-0.1) 01/11/23 03:24 Absolute Gran (auto) Cancelled 01/06/23 05:29 Nucleated RBC % (auto) 0 % 01/11/23 03:24 Nucleated RBCs # 0.0 /100WBC 01/11/23 03:24 D-Dimer 3.97 ug/mIFEU (0-0.59) H 01/05/23 17:13 Specimen Type Arterial 01/05/23 14:13 Sample Site Radial, right 01/05/23 14:13 ABG pH 7.26 (7.35-7.45) L 01/05/23 14:13 ABG pCO2 22.6 mmHg (35-45) L 01/05/23 14:13 ABG pO2 87.1 mmHg (80.0-100.0) 01/05/23 14:13 ABG HCO3 10.2 mmol/L (22-26) L 01/05/23 14:13 ABG O2 Saturation 97.1 01/05/23 14:13 ABG Base Excess -15.3 mmol/L (-2.0-2.0) L 01/05/23 14:13 Clifford Test Pos 01/05/23 14:13 A-a O2 Gradient 4.2 mmHg (5-10) L 01/05/23 14:13 Hematocrit 24.5 % (37-47) L 01/05/23 14:13 Hgb O2 Saturation 95.5 % (95-100) 01/05/23 14:13 Carboxyhemoglobin 1.0 %THgb (0.4-20.1) 01/05/23 14:13 Methemoglobin 0.6 % (0.4-1.5) 01/05/23 14:13 Total Hemoglobin 8.0 g/dL (12-16) L 01/05/23 14:13 Sodium 134.0 mmol/L (131-143) 01/05/23 14:13 Potassium 5.4 mmol/L (3.5-5.0) H 01/05/23 14:13 Glucose 102.0 mg/dL (70-115) 01/05/23 14:13 Ionized Calcium 1.2 mmol/L (1.1-1.4) 01/05/23 14:13 O2 Delivery Device Room air 01/05/23 14:13 FiO2 21.0 % 01/05/23 14:13 Massage Therapy Instructor ID [place] 01/05/23 14:13 Sodium 137 mmol/L (136-145) 01/11/23 03:24 Potassium 3.9 mmol/L (3.5-5.1) 01/11/23 03:24 Chloride 109 mmol/L (98-107) H 01/11/23 03:24 Carbon Dioxide 20 mmol/L (22-29) L 01/11/23 03:24 Anion Gap 11.9 (5-19) 01/11/23 03:24 BUN 16 mg/dL (8-23) 01/11/23 03:24 Creatinine 1.2 mg/dL (0.5-0.9) H 01/11/23 03:24 GFR Calculation Not Reportable 01/11/23 03:24 Glucose 78 mg/dL (65-115) 01/11/23 03:24 Calculated Osmolality 284 mOsm/kg (285-295) L 01/11/23 03:24 Lactic Acid 1.0 mmol/L (0.5-2.2) 01/05/23 13:39 Calcium 8.0 mg/dL (8.5-10.5) L 01/11/23 03:24 Phosphorus 3.5 mg/dL (2.5-4.5) 01/06/23 05:29 Magnesium 2.0 mg/dL (1.7-2.3) 01/06/23 05:29 Iron 16 ug/dL (37-145) L 01/05/23 15:39 TIBC 149 mcg/dl 01/05/23 15:39 % Saturation 10.7 % (20-50) L 01/05/23 15:39 Unsat Iron Binding 133 ug/dL (112-347) 01/05/23 15:39 Total Bilirubin 0.3 mg/dL (0.15-1.2) 01/11/23 03:24 AST 39 U/L (0-32) H 01/11/23 03:24 ALT 42 U/L (0-33) H 01/11/23 03:24 Alkaline Phosphatase 89 U/L (35-105) 01/11/23 03:24 Troponin T Baseline 69 ng/L (0-10) H 01/05/23 13:20 Troponin T 120 Minute 62.66 ng/L (0-10) H 01/05/23 15:39 Delta Troponin T -6.34 ABS# (0-10) L 01/05/23 15:39 Troponin T Hi Sens 6Hr 60.52 ng/L (0-10) H 01/05/23 19:09 Troponin T Hi Sens 6Hr Delta -8.48 ng/L (0-12) L 01/05/23 19:09 Total Protein 5.6 g/dL (6.6-8.7) L 01/11/23 03:24 Albumin 2.5 g/dL (3.5-5.2) L 01/11/23 03:24 Globulin 3.1 g/dL (1.3-4.6) 01/11/23 03:24 Lipase 36 U/L (13-60) 01/05/23 13:20 Vitamin B12 > 2000 pg/mL (232-1245) H 01/05/23 15:39 Folate > 20.0 ng/mL (4.8-37.3) 01/06/23 05:29 Procalcitonin 11.03 ng/mL (0-0.5) H 01/06/23 05:29 Random Cortisol 29.92 ug/dL (2.47-19.5) H 01/05/23 17:13 Urine Color Light yellow (Yellow) 01/05/23 14:05 Urine Appearance Hazy (CLEAR) A 01/05/23 14:05 Urine pH 5 (5-7) 01/05/23 14:05 Ur Specific [place] 1.010 (1.005-1.030) 01/05/23 14:05 Urine Protein 1+ (Negative) H 01/05/23 14:05 Urine Glucose (UA) Norm (Normal) 01/05/23 14:05 Urine Ketones Negative (Negative) 01/05/23 14:05 Urine Blood 3+ (Negative) H 01/05/23 14:05 Urine Nitrate Positive (Negative) H 01/05/23 14:05 Urine Bilirubin Neg (Negative) 01/05/23 14:05 Urine Urobilinogen Norm mg/dL (Negative) 01/05/23 14:05 Ur Leukocyte Esterase 2+ (Negative) H 01/05/23 14:05 Urine RBC 5-10 /hpf (0-2) H 01/05/23 14:05 Urine WBC 55-80 /hpf (0-5) H 01/05/23 14:05 Ur Eosinophil Smear 0 (0-0) 01/05/23 17:00 Ur Squamous Epith Cells 0-4 /hpf (0-5) H 01/05/23 14:05 Amorphous Sediment Not Reportable 01/05/23 14:05 Urine Bacteria 2+ /hpf (NONE) H 01/05/23 14:05 Urine Eosinophils No eosinophils seen 01/05/23 17:00 Ur Random Sodium 81 mmol/L 01/05/23 17:00 Ur Random Potassium 13 mmol/L 01/05/23 17:00 Ur Random Chloride 60 mmol/L 01/05/23 17:00 Urine Creatinine 46 mg/dL (28-217) 01/05/23 17:00 Serum Ketones Negative (Negative) 01/05/23 12:53 Lymphoma Panel See report 01/05/23 17:13 Immunophenotype Interp See report 01/05/23 17:13 Lyme Ab (Western Blot) <0.90 index 01/05/23 17:13 Blood Type O Negative 01/06/23 10:35 Rho(D) Type Negative 01/06/23 10:35 Antibody Screen Negative 01/06/23 10:35 Crossmatch See Detail 01/06/23 10:35 Vitals Last Vital Signs Temp 98.1 F 01/11/23 11:36 Pulse 84 01/11/23 11:36 Resp 17 01/11/23 11:36 BP 146/82 01/11/23 11:36 Pulse Ox 98 01/11/23 11:36 O2 Del Method Room Air 01/11/23 07:51 Discharge Plan Discharge Patient Disposition: Home Condition: Stable Prescriptions: New Augmentin 500-125 mg tablet 1 tab PO BID 7 Days Qty: 14 0RF Flonase Allergy Relief 50 mcg/actuation spray,suspension 1 spray intranasal BID PRN (Reason: allergy symptoms) Qty: 16 0RF Rx Instructions: administer into each nostril Continued atorvastatin 10 mg tablet 10 mg PO DAILY montelukast [Singulair] 10 mg tablet 10 mg PO DAILY levothyroxine 50 mcg tablet 50 mcg PO DAILY Qty: 30 11RF vitamin A 2,400 mcg Capsule 2,400 mcg PO DAILY acetaminophen 325 mg Tablet 650 mg PO QID PRN (Reason: Pain) garlic 100 mg Tablet 100 mg PO DAILY calcium carbonate 500 mg calcium (1,250 mg) Tablet 500 mg PO BID Vitamin C 100 mg Tablet 100 mg PO DAILY coenzyme Q10 30 mg Capsule 30 mg PO DAILY vitamin B complex Capsule 1 cap PO DAILY vitamin [id number] acid 0.5-1 mg Tablet 1 tab PO DAILY Vitamin D3 25 mcg (1,000 unit) Tablet 25 mcg PO DAILY Women's 50 Plus Multivitamin 400 mcg-500 mg calcium-20 mcg Tablet 1 tab PO DAILY chromium aa [id number]-[id number]-[id number] 200-5-25 mcg-mg-mg Tablet 1 tab PO DAILY Discontinued sulfamethoxazole-trimethoprim [Bactrim DS] 800-160 mg tablet 1 tab PO BID Qty: 14 0RF Discharge Orders: Discharge Order (Routine); Ordered 01/11/23 Ordered By: Gelacio Alberto Other Ambulatory Orders: Complete Blood Count w/Auto (Routine) Timeframe: 1 Week Location: Determined by Patient Ordered By: Gelacio Alberto Referrals: Talib Xiong MD [Primary Care Provider] - 01/18/23 10:00 am Patient Instructions: Amoxicillin/Clavulanate Potassium (By mouth), Fluticasone (Into the nose), Hyperkalemia (GEN), Opioid Safety Discharge Attestations Time Spent in Discharge Care*: less than 30 min Quality Metrics Clinical Quality Measures [ No reported AMI, CVA or VTE this stay] Coding Level of Care Code Acute Code for Chg Fwd Diagnoses Septic shock A41.9; R65.21 Anemia D64.9 KARL (acute kidney injury) N17.9 Metabolic acidosis E87.20 Hyperkalemia E87.5 UTI (urinary tract infection) N39.0 Leukocytosis D72.829
[2023-01-11 13:53] VITALS: BP 146/82; PULSE 84; RESP 17; TEMP 36.7; O2SAT 98
[2023-01-12 21:20] LABS: E. Chaffeensis AB IGG <1:64; E. Chaffeensis AB IGM <1:20
[2023-01-13 17:11] LABS: RMSF IGG NOT DETECTED; RMSF IGM NOT DETECTED
== END 2023-01-11 13:00 | disposition home or self-care (01) | DRG 871 ==
LOC: ER 13:00 → ICU 16:06 → MEDSURG 01-08 16:28
PROVIDERS: Admitting Provider Student in an Organized Health Care Education/Training Program; Emergency Provider Family Medicine; PCP Family Medicine; Visit Provider Internal Medicine
DX: A41.51 Sepsis due to Escherichia coli [E. coli] (principal); R65.21 Severe sepsis with septic shock; N39.0 Urinary tract infection, site not specified; N17.9 Acute kidney failure, unspecified; E87.20 Acidosis, unspecified; N12 Tubulo-interstitial nephritis, not specified as acute or chronic; I12.9 Hypertensive chronic kidney disease with stage 1 through stage 4 chronic kidney disease, or unspecified chronic kidney disease; N18.9 Chronic kidney disease, unspecified; E03.9 Hypothyroidism, unspecified; Z87.891 Personal history of nicotine dependence; E87.5 Hyperkalemia; D50.9 Iron deficiency anemia, unspecified; E86.0 Dehydration
CPT/HCPCS: 36415; 36430; 36569; 36592; 36600; 51702; 71045; 71260; 74176; 76705; 80048; 80051; 80053; 81000; 81001; 82009; 82330; 82436; 82533; 82570; 82607; 82746; 82805; 83540; 83550; 83605; 83690; 83735; 84100; 84133; 84145; 84300; 84484; 85025; 85045; 85378; 85999; 86403; 86618; 86666; 86757; 86850; 86900; 86920; 87040; 87070; 87077; 87086; 87186; 87205; 87426; 87449; 87641; 88184; 88185; 93005; 93306; 94640; 94664; 96372; 96374; 96375; 96376; 99285; C1751; C9113; J0131; J0612; J0696; J1644; J1756; J1815; J1956; J2543; J3490; J7030; J7040; J7042; J7060; J7613; P9016; Q9967

== ENCOUNTER → 2023-01-18 10:33 | Outpatient (BNVA) | payer MEDICARE, SELFPAY | PROVIDERS: PCP Family Medicine; Visit Provider Family Medicine | DX: D72.829 Elevated white blood cell count, unspecified (principal) | CPT/HCPCS: 80053; 85025 ==

== ENCOUNTER → 2023-03-21 08:50 | Outpatient (BNVA) | payer MEDICARE, SELFPAY | PROVIDERS: PCP Family Medicine; Visit Provider Family Medicine | DX: I95.9 Hypotension, unspecified (principal); N28.9 Disorder of kidney and ureter, unspecified; E11.9 Type 2 diabetes mellitus without complications; E03.9 Hypothyroidism, unspecified; E78.5 Hyperlipidemia, unspecified; I10 Essential (primary) hypertension | CPT/HCPCS: 80053; 80061; 84443; 85025 ==

== ENCOUNTER → 2023-07-25 14:17 | Outpatient (BNVA) | payer MEDICARE, SELFPAY | PROVIDERS: PCP Family Medicine; Visit Provider Family Medicine | DX: D64.9 Anemia, unspecified (principal); E11.9 Type 2 diabetes mellitus without complications; I10 Essential (primary) hypertension | CPT/HCPCS: 80048; 85025 ==

== ENCOUNTER → 2023-10-17 08:37 | Outpatient (BNVA) | payer MEDICARE, SELFPAY | PROVIDERS: PCP Family Medicine; Visit Provider Family Medicine | DX: I10 Essential (primary) hypertension (principal); E78.5 Hyperlipidemia, unspecified; E03.9 Hypothyroidism, unspecified; E11.9 Type 2 diabetes mellitus without complications; R73.03 Prediabetes; N18.9 Chronic kidney disease, unspecified | CPT/HCPCS: 80048; 80053; 83036; 85025 ==

== ENCOUNTER → 2024-01-18 08:44 | Outpatient (BNVA) | payer MEDICARE, SELFPAY | PROVIDERS: PCP Family Medicine; Visit Provider Family Medicine | DX: N18.9 Chronic kidney disease, unspecified (principal); R73.03 Prediabetes; N28.9 Disorder of kidney and ureter, unspecified; E11.9 Type 2 diabetes mellitus without complications; I10 Essential (primary) hypertension | CPT/HCPCS: 80053; 80061; 83036; 85025 ==

== ENCOUNTER → 2024-07-23 09:35 | Outpatient (BNVA) | payer MEDICARE, SELFPAY | PROVIDERS: PCP Family Medicine; Visit Provider Family Medicine | DX: E11.9 Type 2 diabetes mellitus without complications (principal); I10 Essential (primary) hypertension; E78.5 Hyperlipidemia, unspecified; E03.9 Hypothyroidism, unspecified | CPT/HCPCS: 80053; 80061; 83036; 84443; 85025 ==

== ENCOUNTER → 2025-02-06 09:14 | Outpatient (BNVA) | payer MEDICARE, SELFPAY | PROVIDERS: PCP Family Medicine; Visit Provider Family Medicine | DX: I10 Essential (primary) hypertension (principal); E11.9 Type 2 diabetes mellitus without complications; E78.5 Hyperlipidemia, unspecified | CPT/HCPCS: 83036; 85025 ==

== ENCOUNTER → 2025-02-11 09:23 | Outpatient (BNVA) | payer MEDICARE, SELFPAY | PROVIDERS: PCP Family Medicine; Visit Provider Family Medicine | DX: N28.9 Disorder of kidney and ureter, unspecified (principal) | CPT/HCPCS: 81000; 87077; 87086; 87184 ==

== ENCOUNTER → 2025-08-05 09:47 | Outpatient (BNVA) | payer MEDICARE, SELFPAY | PROVIDERS: PCP Family Medicine; Visit Provider Family Medicine | DX: I10 Essential (primary) hypertension (principal); E78.5 Hyperlipidemia, unspecified; E11.9 Type 2 diabetes mellitus without complications; E03.9 Hypothyroidism, unspecified | CPT/HCPCS: 80053; 80061; 83036; 84443; 85025 ==